=== PATIENT | female | born 1975 | race Hispanic/Latino ===

== ENCOUNTER 2017-01-21 01:31 | Emergency (ER) | payer OTHER ==
[2017-01-21 01:45] VITALS: BMI 35.4
[2017-01-21 01:51] VITALS: TEMP 97.8
[2017-01-21] MEDS ORDERED: Sodium Chloride 0.9% 1,000 ML IV STA (01:55)
[2017-01-21 02:21] LABS: ADD MANUAL DIFF? NO
[2017-01-21 02:24] LABS: BASO # 0.01 K/mm3 (0.0-2.0); BASO % 0.1 % (0.0-3.0); EOS # 0.1 (0.0-0.7); EOS % 0.5 % (1.5-5.0); GRAN # 10.87 (1.4-6.5); HEMATOCRIT 39.6 % (36.0-48.0); LYMPH # 3.2 (1.2-3.4); LYMPH % 21.3 % (22.0-35.0); MEAN CELL VOLUME 90.4 fL (80.0-105.0); MEAN CORPUSCULAR HEMOGLOBIN 31.5 pg (25.0-35.0); MEAN CORPUSCULAR HGB CONC 34.8 g/dl (31.0-37.0); MEAN PLATELET VOLUME 10.5 fl (7.0-11.0); MONO # 0.9 (0.1-0.6); MONO % 6.1 % (1.0-6.0); PLATELET COUNT 260 10^3/uL (120.0-450.0); RED CELL DISTRIBUTION WIDTH 12.8 % (11.5-14.5); WHITE BLOOD COUNT 15.1 10^3/ul (4.5-11.0)
[2017-01-21 02:30] LABS: PH,URINE 5.5 (4.7-8.0); URINE BILIRUBIN NEGATIVE (NEGATIVE); URINE BLOOD SMALL (NEGATIVE); URINE GLUCOSE (UA) NEGATIVE (NEGATIVE); URINE KETONE NEGATIVE (NEGATIVE); URINE LEUKOCYTE ESTERASE NEGATIVE Leu/uL (NEGATIVE); URINE PROTEIN TRACE mg/dL (<30 mg/dL)
[2017-01-21 02:31] LABS: URINE APPEARANCE SLIGHT-CLOUDY (CLEAR); URINE COLOR YELLOW (YELLOW)
[2017-01-21 02:37] LABS: ALB/GLOB RATIO 1.3 (1.1-1.8); ALKALINE PHOSPHATASE 61 U/L (38-133); ALT/SGPT 36 U/L (7-56); AST/SGOT 29 U/L (15-39); BILIRUBIN,TOTAL 0.9 mg/dL (0.2-1.3); BLOOD UREA NITROGEN 14 mg/dL (7-21); CALCIUM 9.5 mg/dL (8.4-10.5); CARBON DIOXIDE 22 mmol/L (21-33); CHLORIDE 106 mmol/L (98-107); GFR AFRICAN-AMERICAN > 60; GLUCOSE,RANDOM 101 mg/dL (70-110); LIPASE 71 U/L (23-300); POTASSIUM 4.1 mmol/L (3.6-5.0); SODIUM 137 mmol/L (132-148); TOTAL PROTEIN 7.8 g/dL (5.8-8.3)
[2017-01-21 02:49] LABS: URINE WBC 0 - 2 /hpf (0-6)
--- NOTE | 2017-01-21 02:55 | ED PDOC ---
Arrival/HPI - General Chief Complaint: Abdominal Pain Time Seen by Provider: 01/21/17 01:47 Historian: Patient - History of Present Illness Narrative History of Present Illness (Text): 01/21/17 02:56 A 41 year old female, whose past medical history includes Crohn's disease, presents to the emergency department complaining of abdominal pain and vomiting for the past week, worsening symptoms tonight. Patient reports symptoms are typical of Crohn's flare. Patient denies any fever, dysuria, diarrhea or any other complaints at this time. GI: Dr. Allen ([place]) PMD: Dr. Martinez Time/Duration: 1 week Symptom Onset: Sudden Symptom Course: Unchanged Activities at Onset: Rest Context: Home Past Medical History - Provider Review Nursing Documentation Reviewed: Yes - Infectious Disease Hx of Infectious Diseases: None - Tetanus Immunization Tetanus Immunization: Unknown - Cardiac Hx Cardiac Disorders: No - Pulmonary Hx Respiratory Disorders: No - Neurological Hx Neurological Disorder: Yes Hx Dizziness: Yes - HEENT Hx HEENT Disorder: No - Renal Hx Renal Disorder: No - Endocrine/Metabolic Hx Endocrine Disorders: No - Hematological/Oncological Hx Blood Disorders: No - Integumentary Hx Dermatological Disorder: No - Musculoskeletal/Rheumatological Hx Musculoskeletal Disorders: No Hx Falls: No - Gastrointestinal Hx Gastrointestinal Disorders: Yes Hx Crohn's Disease: Yes Hx Gall Bladder Disease: Yes - Genitourinary/Gynecological Hx Genitourinary Disorders: No - Psychiatric Hx Psychophysiologic Disorder: Yes Hx Anxiety: Yes Hx Depression: Yes Hx Substance Use: No - Past Surgical History Past Surgical History: No Previous - Anesthesia Hx Anesthesia: Yes Hx Anesthesia Reactions: No Hx Malignant Hyperthermia: No - Suicidal Assessment Feels Threatened In Home Enviroment: No Family/Social History - Physician Review Nursing Documentation Reviewed: Yes Family/Social History: No Known Family HX Smoking Status: Former Smoker Hx Alcohol Use: No Hx Substance Use: No Hx Substance Use Treatment: No Allergies/Home Meds Allergies/Adverse Reactions: Allergies adalimumab [From Humira] Allergy (Verified 06/20/16 10:19) RASH morphine Allergy (Verified 06/20/16 10:19) RASH rifaximin [From Xifaxan] Allergy (Verified 06/20/16 10:19) RASH Sulfa (Sulfonamide Antibiotics) Allergy (Verified 06/20/16 10:19) RASH Home Medications: Home Meds Medication Instructions Recorded Confirmed Dexlansoprazole [Dexilant] 60 mg PO DAILY 10/06/14 01/21/17 Escitalopram [Lexapro] 10 mg PO DAILY 10/06/14 01/21/17 Alprazolam [Xanax] 0.25 mg PO BID 08/23/15 01/21/17 Prednisone [Deltasone] 30 mg PO DAILY 11/13/15 01/21/17 Review of Systems - Physician Review All systems were reviewed & negative as marked: Yes - Review of Systems Constitutional: absent: Fevers Gastrointestinal: Abdominal Pain, Vomiting. absent: Diarrhea Genitourinary Female: absent: Dysuria Physical Exam - Physical Exam Narrative Physical Exam (Text): 01/21/17 02:55 Constitutional: No acute distress. Head: Normocephalic. Atraumatic. Eyes: PERRL. ENT: Moist mucous membranes. Neck: Supple. Cardiovascular: Regular rate. Chest: No tenderness. Respiratory: Clear to auscultation bilaterally. GI: Soft. Nontender. Nondistended. Back: No CVA tenderness. Musculoskeletal: No tenderness or swelling of extremities. Skin: No rash. Neurologic: Alert, no focal deficit. Vital Signs Reviewed: Yes Vital Signs Temp Pulse Resp BP Pulse Ox 01/21/17 03:29 77 18 110/53 L 96 01/21/17 01:50 97.8 F 72 20 156/99 H 98 Temperature: Afebrile Blood Pressure: Hypertensive Pulse: Regular Respiratory Rate: Normal Appearance: Positive for: Well-Appearing, Non-Toxic, Comfortable Pain Distress: None Mental Status: Positive for: Alert and Oriented X 3 Medical Decision Making ED Course and Treatment: 01/21/17 02:48 Impression: A 41 year old female with vomiting and abdominal pain. Differential Diagnosis included but are not limited to: obstruction vs. megacolon Plan: -- Abdomen Xray -- labs -- Urinalysis -- pepcid, IV fluids, Toradol, Zofran -- Reassess and disposition Prior Visits: Notes and results from previous visits were reviewed. Patient last reported to the emergency department on 06/20/16 for evaluation of nausea and abdominal pain. Patient was discharged and advised Percocet medication for pain and Zofran for nausea. Patient also advised [employer] and PMD follow up. Progress Notes: Patient states typically takes Dilaudid for pain when comes to emergency department and must be given with Benadryl, for itchiness. Patient was informed , don't use Dilaudid in my practice. Patient notes allergy to morphine. - Lab Interpretations Lab Results: 01/21/17 02:11 01/21/17 02:11 Lab Results 01/21/17 02:11: Sodium 137, Potassium 4.1, Chloride 106, Carbon Dioxide 22, Anion Gap 13, BUN 14, Creatinine 0.6, Est GFR ( Amer) > 60, Est GFR (Non- Af Amer) > 60, Random Glucose 101, Calcium 9.5, Total Bilirubin 0.9, AST 29, ALT 36, Alkaline Phosphatase 61, Total Protein 7.8, Albumin 4.4, Globulin 3.4, Albumin/Globulin Ratio 1.3, Lipase 71 01/21/17 02:11: Urine Color Yellow, Urine Appearance Slight-cloudy, Urine pH 5.5 , Ur Specific [place] >= 1.030, Urine Protein Trace H, Urine Glucose (UA) Negative, Urine Ketones Negative, Urine Blood Small H, Urine Nitrate Negative, Urine Bilirubin Negative, Urine Urobilinogen 1.0 H, Ur Leukocyte Esterase Negative, Urine RBC 1 - 3, Urine WBC 0 - 2, Ur Epithelial Cells 10 - 12, Urine HCG, Qual Negative 01/21/17 02:11: WBC 15.1 H, RBC 4.38, Hgb 13.8, Hct 39.6, MCV 90.4, MCH 31.5, MCHC 34.8, RDW 12.8, Plt Count 260, MPV 10.5, Gran % 72.0 H, Lymph % (Auto) 21.3 L, [place] % (Auto) 6.1 H, Eos % (Auto) 0.5 L, Baso % (Auto) 0.1, Gran # 10.87 H, Lymph # 3.2, [place] # 0.9 H, Eos # 0.1, Baso # 0.01 I have reviewed the lab results: Yes - RAD Interpretation Radiology Orders: 01/21/17 01:56 ABD 2 VIEWS (FLAT/UP OR DECUB) [RAD] Stat - Medication Orders Current Medication Orders: Discontinued Medications Famotidine (Pepcid) 20 mg IVP STAT STA Stop: 01/21/17 01:57 Last Admin: 01/21/17 02:10 Dose: 20 mg Sodium Chloride (Sodium Chloride 0.9%) 1,000 mls @ 999 mls/hr IV .Q1H1M STA Stop: 01/21/17 02:55 Last Admin: 01/21/17 02:09 Dose: 999 mls/hr Ketorolac Tromethamine (Toradol) 30 mg IVP STAT STA Stop: 01/21/17 01:56 Last Admin: 01/21/17 02:10 Dose: 30 mg Re-Assess: MELANY Pain Assessment Document 01/21/17 03:10 GMD (Rec: 01/21/17 03:25 GMD [id number]) Pain Reassessment Is this a pain reassessment? Yes Sleep Is patient sleeping during reassessment? No Presence of Pain Presence of Pain Yes Pain Scale Used Pain Scale Used Numeric Location Pain Location Body Site Abdomen Description Effectiveness of Techniques minimal effect Ondansetron HCl (Zofran Inj) 8 mg IVP STAT STA Stop: 01/21/17 01:56 Last Admin: 01/21/17 02:10 Dose: 8 mg Oxycodone/Acetaminophen (Percocet 5/325 Mg Tab) 1 tab PO STAT STA Stop: 01/21/17 03:15 Last Admin: 01/21/17 03:24 Dose: 1 tab - Scribe Statement The provider has reviewed the documentation as recorded by the Dave To Provider Scribe Attestation: All medical record entries made by the Scribe were at my direction and personally dictated by me. I have reviewed the chart and agree that the record accurately reflects my personal performance of the history, physical exam, medical decision making, and the department course for this patient. I have also personally directed, reviewed, and agree with the discharge instructions and disposition. Disposition/Present on Arrival - Present on Arrival Any Indicators Present on Arrival: No History of DVT/PE: No History of Uncontrolled Diabetes: No Urinary Catheter: No History of Decub. Ulcer: No History Surgical Site Infection Following: None - Disposition Have Diagnosis and Disposition been Completed?: Yes Diagnosis: Exacerbation of Crohn's disease Disposition: HOME/ ROUTINE Disposition Time: 04:30 Patient Plan: Discharge Condition: STABLE Discharge Instructions (ExitCare): Crohn Disease (ED) Additional Instructions: Narcotic medication can potentially cause addiction. Please use the minimum amount you need for your pain. Prescriptions: oxyCODONE/Acetaminophen [Percocet 5/325 mg Tab] 1 tab PO Q6 #10 tab Polyethylene Glycol 3350 [Miralax] 17 gm PO DAILY #238 gm
[2017-01-21] MEDS ORDERED: Oxycodone/Acetaminophen 5/325 mg Tab PO STA (03:14)
[2017-01-21 03:30] VITALS: PULSE 77; RESP 18
[2017-01-21 05:34] VITALS: BP 114/64; O2SAT 97
--- NOTE | 2017-01-22 08:23 | RAD ---
HISTORY: abdominal pain, vomiting, h/o Crohn's COMPARISON: No prior. FINDINGS: BOWEL: Normal. No obstruction. No free air. BONES: Normal. OTHER FINDINGS: None. IMPRESSION: No active disease.
== END 2017-01-21 05:34 | disposition home or self-care (01) ==
LOC: ED 01:31
DX: K50.90 Crohn's disease, unspecified, without complications (principal)
CPT/HCPCS: 74020; 80053; 81001; 83690; 84703; 85025; 96361; 96374; 96375; 99285; J1885; J2405; J7040

== ENCOUNTER 2017-03-15 07:58 | Inpatient (IN) | payer OTHER ==
[2017-03-15] MEDS ORDERED: Sodium Chloride 0.9% 1,000 ML IV STA (09:09)
[2017-03-15 09:49] LABS: BASO # 0.01 K/mm3 (0.0-2.0); BASO % 0.1 % (0.0-3.0); EOS % 0.1 % (1.5-5.0); GRAN % 83.4 % (50.0-68.0); HEMOGLOBIN 14.9 gm/dL (12.0-16.0); LYMPH # 1.6 (1.2-3.4); LYMPH % 10.2 % (22.0-35.0); MEAN CORPUSCULAR HGB CONC 35.1 g/dl (31.0-37.0); MEAN PLATELET VOLUME 10.4 fl (7.0-11.0); MONO % 6.2 % (1.0-6.0); PLATELET COUNT 327 10^3/uL (120.0-450.0); RBC 4.66 10^6/uL (3.5-6.1); WHITE BLOOD COUNT 15.9 10^3/ul (4.5-11.0)
[2017-03-15 09:57] LABS: PARTIAL THROMBOPLASTIN TIME 29.2 Seconds (23.7-30.8); PROTHROMBIN TIME 10.8 Seconds (9.9-11.8)
--- NOTE | 2017-03-15 10:02 | ED PDOC ---
Arrival/HPI - General Time Seen by Provider: 03/15/17 09:09 Historian: Patient - History of Present Illness Narrative History of Present Illness (Text): 03/15/17 08:25 Idalia Banks is a 42 year old female, whose past medical history includes Crohn's disease, presents to the emergency department complaining of upper and right sided abdominal pain that started last night. Patient reports she has felt nauseous and vomited twice. Patient denies any fever, dysuria, diarrhea, or any other complaints at this time. Time/Duration: Other (since last night at 21:30) Symptom Onset: Gradual Symptom Course: Unchanged Modifying Factors (Text): None Context: Home Associated Symptoms (Text): Vomiting and nausea Past Medical History - Provider Review Nursing Documentation Reviewed: Yes - Infectious Disease Hx of Infectious Diseases: None - Tetanus Immunization Tetanus Immunization: Unknown - Cardiac Hx Cardiac Disorders: No - Pulmonary Hx Respiratory Disorders: No - Neurological Hx Neurological Disorder: Yes Hx Dizziness: Yes - HEENT Hx HEENT Disorder: No - Renal Hx Renal Disorder: No - Endocrine/Metabolic Hx Endocrine Disorders: No - Hematological/Oncological Hx Blood Disorders: No - Integumentary Hx Dermatological Disorder: No - Musculoskeletal/Rheumatological Hx Musculoskeletal Disorders: No Hx Falls: No - Gastrointestinal Hx Gastrointestinal Disorders: Yes Hx Crohn's Disease: Yes Hx Gall Bladder Disease: Yes - Genitourinary/Gynecological Hx Genitourinary Disorders: No - Psychiatric Hx Psychophysiologic Disorder: Yes Hx Anxiety: Yes Hx Depression: Yes Hx Substance Use: No - Past Surgical History Past Surgical History: No Previous - Anesthesia Hx Anesthesia: Yes Hx Anesthesia Reactions: No Hx Malignant Hyperthermia: No - Suicidal Assessment Feels Threatened In Home Enviroment: No Family/Social History - Physician Review Nursing Documentation Reviewed: Yes Family/Social History: Unknown Family HX Smoking Status: Former Smoker Hx Alcohol Use: No Hx Substance Use: No Hx Substance Use Treatment: No Allergies/Home Meds Allergies/Adverse Reactions: Allergies adalimumab [From Humira] Allergy (Verified 06/20/16 10:19) RASH morphine Allergy (Verified 06/20/16 10:19) RASH rifaximin [From Xifaxan] Allergy (Verified 06/20/16 10:19) RASH Sulfa (Sulfonamide Antibiotics) Allergy (Verified 06/20/16 10:19) RASH Home Medications: Home Meds Medication Instructions Recorded Confirmed Dexlansoprazole [Dexilant] 60 mg PO DAILY 10/06/14 01/21/17 Escitalopram [Lexapro] 10 mg PO DAILY 10/06/14 01/21/17 Alprazolam [Xanax] 0.25 mg PO BID 08/23/15 01/21/17 Prednisone [Deltasone] 30 mg PO DAILY 11/13/15 01/21/17 Review of Systems - Physician Review All systems were reviewed & negative as marked: Yes - Review of Systems Constitutional: absent: Fevers Respiratory: absent: SOB Gastrointestinal: Abdominal Pain, Nausea, Vomiting Genitourinary Female: absent: Dysuria Physical Exam Temperature: Afebrile Blood Pressure: Normal Pulse: Regular Respiratory Rate: Normal Appearance: Positive for: Well-Appearing, Non-Toxic, Comfortable Pain Distress: None Mental Status: Positive for: Alert and Oriented X 3 - Systems Exam Head: Present: Atraumatic, Normocephalic Pupils: Present: PERRL Extroacular Muscles: Present: EOMI Conjunctiva: Present: Normal Mouth: Present: Moist Mucous Membranes Neck: Present: Normal Range of Motion Respiratory/Chest: Present: Clear to Auscultation, Good Air Exchange. No: Respiratory Distress, Accessory Muscle Use Cardiovascular: Present: Regular Rate and Rhythm, Normal S1, S2. No: Murmurs Abdomen: Present: Tenderness (RUQ chrons disease exacerbation r/o appendicitis ) , Normal Bowel Sounds. No: Distention, Peritoneal Signs Back: Present: Normal Inspection Upper Extremity: Present: Normal Inspection. No: Cyanosis, Edema Lower Extremity: Present: Normal Inspection. No: Edema Neurological: Present: GCS=15, CN II-XII Intact, Speech Normal Skin: Present: Warm, Dry, Normal Color. No: Rashes Psychiatric: Present: Alert, Oriented x 3, Normal Insight, Normal Concentration Medical Decision Making ED Course and Treatment: 03/15/17 08:25 Impression: 42 year old female with RUQ abdominal pain. Differential Diagnosis included but are not limited to: crohn's exacerbation vs obstruction Plan: -- CT abdomen and pelvis with PO and IV contrast -- Labs -- Sodium Chloride, Toradol, and Zofran -- Reassess and disposition - Lab Interpretations Lab Results: 03/15/17 08:50 03/15/17 08:50 Lab Results 03/15/17 08:50: Sodium 138, Potassium 4.1, Chloride 102, Carbon Dioxide 23, Anion Gap 17, BUN 11, Creatinine 0.6, Est GFR ( Amer) > 60, Est GFR (Non- Af Amer) > 60, Random Glucose 109, Calcium 9.7, Total Bilirubin 0.9, AST 38, ALT 40, Alkaline Phosphatase 68, Total Protein 8.4 H, Albumin 4.8, Globulin 3.6 , Albumin/Globulin Ratio 1.3, Lipase 42 03/15/17 08:50: PT 10.8, INR 1.00, APTT 29.2 03/15/17 08:50: WBC 15.9 H, RBC 4.66, Hgb 14.9, Hct 42.4, MCV 91.0, MCH 32.0, MCHC 35.1, RDW 13.0, Plt Count 327, MPV 10.4, Gran % 83.4 H, Lymph % (Auto) 10.2 L, [place] % (Auto) 6.2 H, Eos % (Auto) 0.1 L, Baso % (Auto) 0.1, Gran # 13.30 H, Lymph # 1.6, [place] # 1.0 H, Eos # 0.0, Baso # 0.01 I have reviewed the lab results: Yes - RAD Interpretation Radiology Orders: 03/15/17 09:09 ABD PELVIS PO & IV CONTRAST [CT] Stat - Medication Orders Current Medication Orders: Heparin Sodium (Porcine) (Heparin) 5,000 units SC Q12 [facility] Sodium Chloride (Sodium Chloride 0.9%) 1,000 mls @ 125 mls/hr IV .Q8H [facility] Last Admin: 03/15/17 15:12 Dose: 125 mls/hr Metronidazole (Flagyl) 500 mg in 100 mls @ 100 mls/hr IVPB Q8 REESE PRN Reason: Protocol Ceftriaxone Sodium (Rocephin 1 Gram Ivpb) 1 gm in 100 mls @ 100 mls/hr IVPB DAILY [facility] PRN Reason: Protocol Last Admin: 03/15/17 15:34 Dose: 100 mls/hr Ketorolac Tromethamine (Toradol) 30 mg IVP Q6 PRN PRN Reason: Pain, severe (8-10) Stop: 03/17/17 23:59 Ondansetron HCl (Zofran Inj) 4 mg IVP Q6H PRN PRN Reason: Nausea/Vomiting Pantoprazole Sodium (Protonix Inj) 40 mg IVP DAILY REESE Discontinued Medications Sodium Chloride (Sodium Chloride 0.9%) 1,000 mls @ 1,000 mls/hr IV .Q1H STA Stop: 03/15/17 10:08 Last Admin: 03/15/17 09:22 Dose: 1,000 mls/hr Iohexol (Omnipaque 350 100 Ml) Confirm Administered Dose 350 mg .ROUTE .STK-MED ONE Stop: 03/15/17 10:10 Ketorolac Tromethamine (Toradol) 30 mg IVP STAT STA Stop: 03/15/17 09:10 Last Admin: 03/15/17 09:13 Dose: 30 mg Ketorolac Tromethamine (Toradol) 30 mg IVP STAT STA Stop: 03/15/17 15:05 Last Admin: 03/15/17 15:33 Dose: 30 mg Ondansetron HCl (Zofran Inj) 4 mg IVP STAT STA Stop: 03/15/17 09:10 Last Admin: 03/15/17 09:05 Dose: 4 mg ED OBSERVATION Discharge: Yes Date of observation admission: 03/15/17 Time of observation admission: 08:25 - Observation admission statement Patient is being placed in observation because:: Right upper quadrant pain. Chron's disease exacerbation. - Goals of Observation Goals of observation are:: To relief and improve pain symptoms. - Progress Note Progress Note: 03/15/17 08:25 Patient is currently being observe and given the following treatments: -- EKG -- CT abdomen and pelvis with PO and IV contrast -- Labs -- Toradol, Zofran, and Sodium Chloride 03/15/17 10:25 EKG: Ordered, reviewed, and independently interpreted the EKG. Rate : 76 BPM Rhythm : NSR Interpretation : No ST-segment elevations or depressions, no T-wave inversions, normal intervals. Comparison : No previous EKG for comparison. 03/15/2017 12:25 CT Abdomen and Pelvis with oral and IV contrast: Creator : Love Samaniego MD COMPARISON: CT of the abdomen and pelvis with contrast performed 06/20/16 FINDINGS: LOWER THORAX: No visible consolidation, pleural effusion, or pneumothorax. LIVER: Hypoattenuation of the liver compatible with hepatic steatosis. GALLBLADDER AND BILE DUCTS:Cholelithiasis. PANCREAS: Unremarkable. SPLEEN: Unremarkable. ADRENALS:Unremarkable. KIDNEYS AND URETERS:The kidneys enhance symmetrically. No hydronephrosis or obstructing renal calculus. BLADDER:The urinary bladder appears unremarkable. REPRODUCTIVE:Uterus is present. APPENDIX: The presumed appendix measures approximately 9 mm in maximum diameter without associated inflammatory changes appreciated. BOWEL:The stomach is nondistended. Dilated loops of small bowel most prominent centrally worrisome for obstruction. Apparent stricture or abnormality about the terminal ileum. PERITONEUM: Small pelvic free fluid. No definite free air. LYMPH NODES: No bulky lymphadenopathy identified. VASCULATURE: No aortic aneurysm. BONES: No acute osseous abnormality is detected. OTHER FINDINGS:None. IMPRESSION: Dilated loops of small bowel most prominent centrally worrisome for obstruction. Apparent stricture or abnormality about the terminal ileum. Correlate clinically as this may be related to patient's history of Crohn's disease. The presumed appendix appears mildly dilated measuring up to approximately 9 mm in maximum diameter without associated inflammatory changes appreciated. Correlate clinically. Small pelvic free fluid. Cholelithiasis. Hepatic steatosis. 03/15/17 12:25 Patient is resting comfortably with no acute stress. The CT scans were reviewed. Case was discussed with Dr. Murphy, Surgery who will place on her service. Requested surgical residents being. Discussed cased with Aman Miranda who will place on her service. Patient's pain was controlled. - Scribe Statement The provider has reviewed the documentation as recorded by the Scribe 03/15/2017 Alexandria Edwards Provider Scribe Attestation: All medical record entries made by the Scribe were at my direction and personally dictated by me. I have reviewed the chart and agree that the record accurately reflects my personal performance of the history, physical exam, medical decision making, and the department course for this patient. I have also personally directed, reviewed, and agree with the discharge instructions and disposition. Disposition/Present on Arrival - Present on Arrival Any Indicators Present on Arrival: No History of DVT/PE: No History of Uncontrolled Diabetes: No Urinary Catheter: No History Surgical Site Infection Following: None - Disposition Have Diagnosis and Disposition been Completed?: Yes Diagnosis: Bowel obstruction Disposition: HOSPITALIZED Disposition Time: 13:44 Patient Plan: Observation Condition: FAIR
[2017-03-15 10:06] LABS: ALB/GLOB RATIO 1.3 (1.1-1.8); ALBUMIN 4.8 g/dL (3.0-4.8); ALT/SGPT 40 U/L (7-56); AST/SGOT 38 U/L (15-39); BLOOD UREA NITROGEN 11 mg/dL (7-21); CALCIUM 9.7 mg/dL (8.4-10.5); GFR AFRICAN-AMERICAN > 60; GFR NON-AFRICAN AMERICAN > 60; LIPASE 42 U/L (23-300)
[2017-03-15] MEDS ORDERED: Iohexol 350 MG/100 ML VIAL ONE (10:09)
--- NOTE | 2017-03-15 12:20 | CT ---
PROCEDURE: CT Abdomen and Pelvis with oral and IV contrast. HISTORY: abd pain h/o crohn's r/o appy r/o abscess COMPARISON: CT of the abdomen and pelvis with contrast performed 06/20/16 TECHNIQUE: Contiguous axial images of the abdomen and pelvis. Oral and IV contrast was administered. Coronal and Sagittal reformats generated and reviewed. Contrast dose: 100 mL Omnipaque 350 Radiation dose: Total exam DLP = 909.41 mGy-cm. This CT exam was performed using one or more of the following dose reduction techniques: Automated exposure control, adjustment of the mA and/or kV according to patient size, and/or use of iterative reconstruction technique. FINDINGS: LOWER THORAX: No visible consolidation, pleural effusion, or pneumothorax. LIVER: Hypoattenuation of the liver compatible with hepatic steatosis. GALLBLADDER AND BILE DUCTS: Cholelithiasis. PANCREAS: Unremarkable. SPLEEN: Unremarkable. ADRENALS: Unremarkable. KIDNEYS AND URETERS: The kidneys enhance symmetrically. No hydronephrosis or obstructing renal calculus. BLADDER: The urinary bladder appears unremarkable. REPRODUCTIVE: Uterus is present. APPENDIX: The presumed appendix measures approximately 9 mm in maximum diameter without associated inflammatory changes appreciated. BOWEL: The stomach is nondistended. Dilated loops of small bowel most prominent centrally worrisome for obstruction. Apparent stricture or abnormality about the terminal ileum. PERITONEUM: Small pelvic free fluid. No definite free air. LYMPH NODES: No bulky lymphadenopathy identified. VASCULATURE: No aortic aneurysm. BONES: No acute osseous abnormality is detected. OTHER FINDINGS: None. IMPRESSION: Dilated loops of small bowel most prominent centrally worrisome for obstruction. Apparent stricture or abnormality about the terminal ileum. Correlate clinically as this may be related to patient's history of Crohn's disease. The presumed appendix appears mildly dilated measuring up to approximately 9 mm in maximum diameter without associated inflammatory changes appreciated. Correlate clinically. Small pelvic free fluid. Cholelithiasis. Hepatic steatosis.
[2017-03-15] MEDS: Sodium Chloride 0.9% 1,000 ML IV SCH (15:12)
--- NOTE | 2017-03-15 15:13 | RAD ---
PROCEDURE: Portable chest HISTORY: ngt COMPARISON: 11/13/2015 TECHNIQUE: FINDINGS: The nasogastric tube is in satisfactory position in the region of the gastric antrum IMPRESSION: As above
[2017-03-15] MEDS: cefTRIAXone 1 gm 1 GM/100 ML BAG IVPB SCH (15:34)
--- NOTE | 2017-03-15 16:11 | CP.PCM.CON ---
History of Present Illness - History of Present Illness History of Present Illness: General Surgery Consult Note Resident: Dayna Attending: Jeffrey HPI: We are being consulted for a SBO. Patient is a 42 yo WF with Crohn's Disease who presented to the ED with a chief complaint of abdominal pain for 1 day. Today at home she was vomiting before coming to ED. She had a loose BM today without blood. The onset was sudden. She has had two prior episodes of SBO that resolved with conservative management, one at [facility] and the other at [facility]. CT showed dilated loops of small bowel and a new stricture in the terminal ileum. NGT was inserted in ED. Patient was admitted to the hospital. Review of Systems - Constitutional Constitutional: As Per HPI - EENT Eyes: As Per HPI Ears: As Per HPI - Cardiovascular Cardiovascular: As Per HPI - Respiratory Respiratory: As Per HPI - Gastrointestinal Gastrointestinal: Abdominal Pain, Bloating, Change in Bowel Habits, Cramping, Loose Stools, Nausea, Vomiting. absent: Hematemesis Past Patient History - Infectious Disease Hx of Infectious Diseases: None - Tetanus Immunizations Tetanus Immunization: Unknown - Past Social History Smoking Status: Former Smoker - CARDIAC Hx Cardiac Disorders: No - PULMONARY Hx Respiratory Disorders: No - NEUROLOGICAL Hx Neurological Disorder: Yes Hx Dizziness: Yes - HEENT Hx HEENT Problems: No - RENAL Hx Chronic Kidney Disease: No - ENDOCRINE/METABOLIC Hx Endocrine Disorders: No - HEMATOLOGICAL/ONCOLOGICAL Hx Blood Disorders: No - INTEGUMENTARY Hx Dermatological Problems: No - MUSCULOSKELETAL/RHEUMATOLOGICAL Hx Musculoskeletal Disorders: No Hx Falls: No - GASTROINTESTINAL Hx Gastrointestinal Disorders: Yes Hx Crohn's Disease: Yes Hx Gall Bladder Disease: Yes - GENITOURINARY/GYNECOLOGICAL Hx Genitourinary Disorders: No - PSYCHIATRIC Hx Psychophysiologic Disorder: Yes Hx Anxiety: Yes Hx Depression: Yes Hx Substance Use: No - SURGICAL HISTORY Hx Surgeries: No - ANESTHESIA Hx Anesthesia: Yes Hx Anesthesia Reactions: No Hx Malignant Hyperthermia: No Meds Allergies/Adverse Reactions: Allergies Allergy/AdvReac Type Severity Reaction Status Date / Time adalimumab [From Humira] Allergy RASH Verified 06/20/16 10:19 morphine Allergy RASH Verified 06/20/16 10:19 rifaximin [From Xifaxan] Allergy RASH Verified 06/20/16 10:19 Sulfa (Sulfonamide Allergy RASH Verified 06/20/16 10:19 Antibiotics) - Medications Medications: Current Medications Heparin Sodium (Porcine) (Heparin) 5,000 units SC Q12 [facility] Sodium Chloride (Sodium Chloride 0.9%) 1,000 mls @ 125 mls/hr IV .Q8H [facility] Last Admin: 03/15/17 15:12 Dose: 125 mls/hr Metronidazole (Flagyl) 500 mg in 100 mls @ 100 mls/hr IVPB Q8 [facility] PRN Reason: Protocol Ceftriaxone Sodium (Rocephin 1 Gram Ivpb) 1 gm in 100 mls @ 100 mls/hr IVPB DAILY [facility] PRN Reason: Protocol Last Admin: 03/15/17 15:34 Dose: 100 mls/hr Ketorolac Tromethamine (Toradol) 30 mg IVP Q6 PRN PRN Reason: Pain, severe (8-10) Stop: 03/17/17 23:59 Ondansetron HCl (Zofran Inj) 4 mg IVP Q6H PRN PRN Reason: Nausea/Vomiting Pantoprazole Sodium (Protonix Inj) 40 mg IVP DAILY [facility] Physical Exam - Constitutional Appears: No Acute Distress - Head Exam Head Exam: NORMAL INSPECTION - Eye Exam Eye Exam: EOMI - ENT Exam ENT Exam: Mucous Membranes Moist - Respiratory Exam Respiratory Exam: Clear to Auscultation Bilateral - Cardiovascular Exam Cardiovascular Exam: REGULAR RHYTHM - GI/Abdominal Exam GI & Abdominal Exam: Soft. absent: Distended, Tenderness Results - Labs Result Diagrams: 03/15/17 08:50 03/15/17 08:50 Assessment & Plan - Assessment and Plan (Free Text) Assessment: 42 yo WF with SBO * NGT * NPO * Toradol for pain * Serial abdominal exam * IVF NS @ 125 * DVT PPX: SCD * Will discuss with Dr. Jeffrey Mcintosh DO PGY-I - Date & Time Date: 03/15/17 Time: 16:20
[2017-03-15] MEDS: metroNIDAZOLE IV 500 mg/100 ml 500 MG/100 ML BAG IVPB SCH ×2 (16:40→22:46)
--- NOTE | 2017-03-15 16:46 | CP.PCM.HP ---
History of Present Illness - History of Present Illness History of Present Illness: HPI: 42yo F with PMH of Crohns dx presented to [facility] [place] with RLQ abd pain and nausea that started suddenly around 9pm last night. Pt describes pain as crampy and clenching, and says that it comes in waves. Pt reports that she ate dinner (chicken and rice) a few hours before the pain began. Pt usually has percocets at home for pain but did not have any so she took a xanax which slightly helped. This morning, the pt had 2 episodes of emesis consisting of food remnants. Noted some red in the emesis but did not attribute it to blood. Pts last BM was today in the ER, had a softer consistency than normal for her but was normal color and not watery. Denies having an appetite today. Pt has had similar episodes of abd pain previously, was admitted August and October [address] evidence of SBO without stricture. Both admissions involved bowel rest and NG tube decompression with resolution. Pt relays that the current pain is less than previous occurrences. Currently, pt denies fevers, chills, DUMONT, SOB , chest pain, dysuria, urinary frequency, constipation, diarrhea, melena, hematochezia. PMHx: Crohns diagnosed in 2004 SHx: denies FHx: mother with possible h/o colitis Social: previous smoker, quit 4yrs ago with 25pk year history. Social drinker, denies illicit drugs Allergies: adalimumab, morphine, rifaximin, sulfa Home Medications: prednisone, xanax, remicade q8wks Present on Admission - Present on Admission Any Indicators Present on Admission: No Review of Systems - Review of Systems All systems: reviewed and no additional remarkable complaints except - Constitutional Constitutional: As Per HPI - Cardiovascular Cardiovascular: As Per HPI - Respiratory Respiratory: As Per HPI - Gastrointestinal Gastrointestinal: As Per HPI - Genitourinary Genitourinary: As Per HPI Past Patient History - Infectious Disease Hx of Infectious Diseases: None - Tetanus Immunizations Tetanus Immunization: Unknown - Past Social History Smoking Status: Former Smoker - CARDIAC Hx Cardiac Disorders: No - PULMONARY Hx Respiratory Disorders: No - NEUROLOGICAL Hx Neurological Disorder: Yes Hx Dizziness: Yes - HEENT Hx HEENT Problems: No - RENAL Hx Chronic Kidney Disease: No - ENDOCRINE/METABOLIC Hx Endocrine Disorders: No - HEMATOLOGICAL/ONCOLOGICAL Hx Blood Disorders: No - INTEGUMENTARY Hx Dermatological Problems: No - MUSCULOSKELETAL/RHEUMATOLOGICAL Hx Musculoskeletal Disorders: No Hx Falls: No - GASTROINTESTINAL Hx Gastrointestinal Disorders: Yes Hx Crohn's Disease: Yes Hx Gall Bladder Disease: Yes - GENITOURINARY/GYNECOLOGICAL Hx Genitourinary Disorders: No - PSYCHIATRIC Hx Psychophysiologic Disorder: Yes Hx Anxiety: Yes Hx Depression: Yes Hx Substance Use: No - SURGICAL HISTORY Hx Surgeries: No - ANESTHESIA Hx Anesthesia: Yes Hx Anesthesia Reactions: No Hx Malignant Hyperthermia: No Meds Allergies/Adverse Reactions: Allergies Allergy/AdvReac Type Severity Reaction Status Date / Time adalimumab [From Humira] Allergy RASH Verified 06/20/16 10:19 morphine Allergy RASH Verified 06/20/16 10:19 rifaximin [From Xifaxan] Allergy RASH Verified 06/20/16 10:19 Sulfa (Sulfonamide Allergy RASH Verified 06/20/16 10:19 Antibiotics) Physical Exam - Constitutional Appears: Non-toxic - Head Exam Head Exam: ATRAUMATIC, NORMOCEPHALIC - Eye Exam Eye Exam: EOMI, Normal appearance - ENT Exam ENT Exam: Mucous Membranes Moist - Neck Exam Neck exam: Negative for: Lymphadenopathy, Thyromegaly - Respiratory Exam Respiratory Exam: Clear to Auscultation Bilateral. absent: Rales, Rhonchi, Wheezes, Stridor - Cardiovascular Exam Cardiovascular Exam: RRR, +S1, +S2 - GI/Abdominal Exam GI & Abdominal Exam: Normal Bowel Sounds, Soft, Tenderness. absent: Organomegaly - Extremities Exam Extremities exam: Negative for: pedal edema - Neurological Exam Neurological exam: Alert, Oriented x3 - Psychiatric Exam Psychiatric exam: Normal Affect, Normal Mood Results - Labs Result Diagrams: 03/15/17 08:50 03/15/17 08:50 Assessment & Plan - Assessment and Plan (Free Text) Assessment: 42yo F with PMH of Crohns disease admitted [place] [facility] for crampy RLQ abd pain and n/v Plan: 1.Abd pain -Likely 2/2 SBO with new terminal ileum stricture per CT scan vs appendicitis -Toradol for pain control for up to 48hrs, dilaudid for severe pain overnight -Zofran for nausea -Surg recs appreciated - admitted to med/surg NPO with IVF, NG tube, no surgery planned currently -GI consult 2.Leukocytosis -WBC 15.9 -Rocephin/flagyl for possible appendicitis -9mm dilated appendix on CT scan -UA, blood cx, -Urine cx pending -Procal, CRP pending GI ppx - PTX DVT ppx - heparin sc, SCDs Dispo: admit to med/surg, NPO with IVF and NG tube decompression. No surgery planned. GI on consult. Pain control overnigh - Date & Time Date: 03/15/17 Time: 18:35
[2017-03-15 16:55] VITALS: RESP 20
--- NOTE | 2017-03-15 17:28 | CARD ---
APPROVED REPORT EKG Measurement Heart [id number] <Conclusion> Sinus rhythm with short HI Low voltage QRS Borderline ECG
[2017-03-15 23:28] VITALS: BMI 34.3
[2017-03-15] MEDS ORDERED: Pneumococcal 23-Valent Vaccine IM ONE (23:28)
[2017-03-16] MEDS: metroNIDAZOLE IV 500 mg/100 ml 500 MG/100 ML BAG IVPB SCH ×3 (06:44→21:28)
[2017-03-16 07:21] LABS: ALB/GLOB RATIO 1.2 (1.1-1.8); ALBUMIN 3.4 g/dL (3.0-4.8); ALT/SGPT 25 U/L (7-56); AST/SGOT 21 U/L (15-39); BLOOD UREA NITROGEN 11 mg/dL (7-21); CALCIUM 7.8 mg/dL (8.4-10.5); GFR AFRICAN-AMERICAN > 60; GFR NON-AFRICAN AMERICAN > 60
[2017-03-16 07:38] LABS: HEMOGLOBIN 12.9 gm/dL (12.0-16.0); MEAN CELL VOLUME 92.8 fL (80.0-105.0); MEAN CORPUSCULAR HEMOGLOBIN 32.1 pg (25.0-35.0); MEAN CORPUSCULAR HGB CONC 34.6 g/dl (31.0-37.0); MEAN PLATELET VOLUME 10.3 fl (7.0-11.0); RBC 4.02 10^6/uL (3.5-6.1); RED CELL DISTRIBUTION WIDTH 13.1 % (11.5-14.5); WHITE BLOOD COUNT 6.7 10^3/ul (4.5-11.0)
--- NOTE | 2017-03-16 08:07 | CP.PCM.CON ---
<Dillon Trejo - Last Filed: 03/16/17 08:52> History of Present Illness - History of Present Illness History of Present Illness: PGY4 GI Initial Consult Jocelyn Friedman is a 42F w/ hx of Crohn's diagnosed in 2004 who presents to the Er with complaints of abd pain, nausea, and vomiting. Pt states that the onset was 2-3 days prior. she describes the pain as initially being tolerable but worsened to 10 out of 10 pain. Location RLQ and nonradiating. Duration constant. Quality: sharp. Pt states that she also had concurrent nausea and vomiting with loose BM, She denies any fever, chills or diaphoresis. She has been on methotrexate and remicade infusions. Her last infusion was in January. She denies any blood in her BM, + flatus. Last BM last night. Denies nay melena, hematemsis. Her Abd CT in the ER revealed a stricture around the ileum. She was admitted as a SBO and a NG was placed. There was > 600cc output since placement. PMHx: Crohns diagnosed in 2004 SHx: denies FHx: mother with possible h/o colitis Social: previous smoker, quit 4yrs ago with 25pk year history. Social drinker, denies illicit drugs Allergies: adalimumab, morphine, rifaximin, sulfa Home Medications: prednisone, xanax, remicade q8wks Endoscopy hx: within the last 5 years, as per pt had both EGD and colonoscopy, possible polyps Past Patient History - Infectious Disease Hx of Infectious Diseases: None - Tetanus Immunizations Tetanus Immunization: Unknown - Past Social History Smoking Status: Current Some Days Smoker - CARDIAC Hx Cardiac Disorders: No - PULMONARY Hx Respiratory Disorders: No - NEUROLOGICAL Hx Neurological Disorder: Yes Hx Dizziness: Yes - HEENT Hx HEENT Problems: No - RENAL Hx Chronic Kidney Disease: No - ENDOCRINE/METABOLIC Hx Endocrine Disorders: No - HEMATOLOGICAL/ONCOLOGICAL Hx Blood Disorders: No - INTEGUMENTARY Hx Dermatological Problems: No - MUSCULOSKELETAL/RHEUMATOLOGICAL Hx Musculoskeletal Disorders: No Hx Falls: No - GASTROINTESTINAL Hx Gastrointestinal Disorders: Yes Hx Crohn's Disease: Yes Hx Gall Bladder Disease: Yes ([place]) Hx Gastroesophageal Reflux: Yes - GENITOURINARY/GYNECOLOGICAL Hx Genitourinary Disorders: No - PSYCHIATRIC Hx Psychophysiologic Disorder: Yes Hx Anxiety: Yes Hx Depression: Yes Hx Substance Use: No - SURGICAL HISTORY Hx Surgeries: No - ANESTHESIA Hx Anesthesia: Yes Hx Anesthesia Reactions: No Hx Malignant Hyperthermia: No Meds Allergies/Adverse Reactions: Allergies Allergy/AdvReac Type Severity Reaction Status Date / Time adalimumab [From Humira] Allergy RASH Verified 06/20/16 10:19 morphine Allergy RASH Verified 06/20/16 10:19 rifaximin [From Xifaxan] Allergy RASH Verified 06/20/16 10:19 Sulfa (Sulfonamide Allergy RASH Verified 06/20/16 10:19 Antibiotics) - Medications Medications: Current Medications Heparin Sodium (Porcine) (Heparin) 5,000 units SC Q12 [facility] Last Admin: 03/15/17 22:46 Dose: 5,000 units Sodium Chloride (Sodium Chloride 0.9%) 1,000 mls @ 125 mls/hr IV .Q8H [facility] Last Admin: 03/15/17 15:12 Dose: 125 mls/hr Metronidazole (Flagyl) 500 mg in 100 mls @ 100 mls/hr IVPB Q8 [facility] PRN Reason: Protocol Last Admin: 03/16/17 06:44 Dose: 100 mls/hr Ceftriaxone Sodium (Rocephin 1 Gram Ivpb) 1 gm in 100 mls @ 100 mls/hr IVPB DAILY [facility] PRN Reason: Protocol Last Admin: 03/15/17 15:34 Dose: 100 mls/hr Ketorolac Tromethamine (Toradol) 30 mg IVP Q6 PRN PRN Reason: Pain, severe (8-10) Stop: 03/17/17 23:59 Last Admin: 03/16/17 06:44 Dose: 30 mg Ondansetron HCl (Zofran Inj) 4 mg IVP Q6H PRN PRN Reason: Nausea/Vomiting Last Admin: 03/15/17 21:41 Dose: 4 mg Pantoprazole Sodium (Protonix Inj) 40 mg IVP DAILY [facility] Last Admin: 03/15/17 16:39 Dose: 40 mg Physical Exam - Constitutional Appears: Well, Non-toxic, No Acute Distress - Head Exam Head Exam: ATRAUMATIC, NORMOCEPHALIC - Eye Exam Eye Exam: Normal appearance - ENT Exam ENT Exam: Mucous Membranes Moist, Normal Exam - Respiratory Exam Respiratory Exam: Clear to Auscultation Bilateral, NORMAL BREATHING PATTERN. absent: Rales, Rhonchi, Wheezes - Cardiovascular Exam Cardiovascular Exam: REGULAR RHYTHM, +S1, +S2 - GI/Abdominal Exam GI & Abdominal Exam: Normal Bowel Sounds, Soft, Tenderness (RUQ). absent: Organomegaly, Rebound, Rigid - Neurological Exam Neurological exam: Alert, Oriented x3 - Psychiatric Exam Psychiatric exam: Normal Affect, Normal Mood - Skin Skin Exam: Dry, Intact, Normal Color, Warm Results - Vital Signs Recent Vital Signs: Last Vital Signs Temp 97.9 F 03/16/17 07:30 Pulse 70 03/16/17 07:30 Resp 20 03/16/17 07:30 BP 111/61 03/16/17 07:30 Pulse Ox 97 03/16/17 07:30 - Labs Result Diagrams: 03/16/17 06:30 03/16/17 06:30 Labs: Laboratory Results - last 24 hr 03/15/17 03/16/17 03/16/17 18:28 06:30 06:30 WBC 6.7 D RBC 4.02 Hgb 12.9 Hct 37.3 MCV 92.8 MCH 32.1 MCHC 34.6 RDW 13.1 Plt Count 247 MPV 10.3 APTT 29.1 Sodium 138 Potassium 3.6 Chloride 108 H Carbon Dioxide 22 Anion Gap 12 BUN 11 Creatinine 0.6 Est GFR ( Amer) > 60 Est GFR (Non-Af Amer) > 60 Random Glucose 81 Calcium 7.8 L Total Bilirubin 0.8 AST 21 ALT 25 Alkaline Phosphatase 48 Total Protein 6.3 Albumin 3.4 Globulin 2.9 Albumin/Globulin Ratio 1.2 Assessment & Plan - Assessment and Plan (Free Text) Assessment: 40 year old female with h/o Crohn's ileitis currently on methotrexate and remicade, admitted with small bowel obstruction and distal ileal obstruction 1. Crohn's ileitis - -Start clears once able to tolerating diet -having BM -okay with conservative management for now including NG tube -NG still has sig output -Antiemetics PRN -surgery on board -no indication for antibiotics at this point for crohn's disease -will likely need to follow-up with her out GI physician Timoteo Chan <Jefferson Chan - Last Filed: 03/16/17 12:34> Meds - Medications Medications: Current Medications Heparin Sodium (Porcine) (Heparin) 5,000 units SC Q12 [facility] Last Admin: 03/16/17 09:38 Dose: 5,000 units Hydromorphone HCl (Dilaudid) 1 mg IVP Q6H PRN PRN Reason: Pain, severe (8-10) Sodium Chloride (Sodium Chloride 0.9%) 1,000 mls @ 125 mls/hr IV .Q8H [facility] Last Admin: 03/15/17 15:12 Dose: 125 mls/hr Metronidazole (Flagyl) 500 mg in 100 mls @ 100 mls/hr IVPB Q8 [facility] PRN Reason: Protocol Last Admin: 03/16/17 06:44 Dose: 100 mls/hr Ceftriaxone Sodium (Rocephin 1 Gram Ivpb) 1 gm in 100 mls @ 100 mls/hr IVPB DAILY [facility] PRN Reason: Protocol Last Admin: 03/16/17 09:42 Dose: 100 mls/hr Ketorolac Tromethamine (Toradol) 30 mg IVP Q6 PRN PRN Reason: Pain, moderate (4-7) Stop: 03/17/17 23:59 Ondansetron HCl (Zofran Inj) 4 mg IVP Q6H PRN PRN Reason: Nausea/Vomiting Last Admin: 03/15/17 21:41 Dose: 4 mg Pantoprazole Sodium (Protonix Inj) 40 mg IVP DAILY [facility] Last Admin: 03/16/17 09:37 Dose: 40 mg Results - Vital Signs Recent Vital Signs: Last Vital Signs Temp 97.9 F 03/16/17 07:30 Pulse 70 03/16/17 07:30 Resp 20 03/16/17 07:30 BP 111/61 03/16/17 07:30 Pulse Ox 97 03/16/17 07:30 - Labs Result Diagrams: 03/16/17 06:30 03/16/17 06:30 Labs: Laboratory Results - last 24 hr 03/15/17 03/16/17 03/16/17 18:28 06:30 06:30 WBC 6.7 D RBC 4.02 Hgb 12.9 Hct 37.3 MCV 92.8 MCH 32.1 MCHC 34.6 RDW 13.1 Plt Count 247 MPV 10.3 APTT 29.1 Sodium 138 Potassium 3.6 Chloride 108 H Carbon Dioxide 22 Anion Gap 12 BUN 11 Creatinine 0.6 Est GFR ( Amer) > 60 Est GFR (Non-Af Amer) > 60 Random Glucose 81 Calcium 7.8 L Total Bilirubin 0.8 AST 21 ALT 25 Alkaline Phosphatase 48 Total Protein 6.3 Albumin 3.4 Globulin 2.9 Albumin/Globulin Ratio 1.2 Attending/Attestation - Attestation I have personally seen and examined this patient.: Yes I have fully participated in the care of the patient.: Yes I have reviewed all pertinent clinical information: Yes Notes (Text): 03/16/17 12:32 40 year old female with long standing h/o Crohn's disease (Dx 2004) on multiple different therapies over the years, currently remicade/MTX, admitted with SBO. 1. Crohn's disease 2. Small bowel obstruction Plan: -clinicaly improving with conservative measures -agree with NGT decompression -IV hydration / pain control / anti -emetics -if feeling better, consider clamping NG and trial of CLD -surgery following -patient may ultimately need surgery if she has recurrent obstructions -outpatient follow up with her GI advised -will follow
[2017-03-16] MEDS: cefTRIAXone 1 gm 1 GM/100 ML BAG IVPB SCH (09:42)
[2017-03-16] MEDS ORDERED: HYDROmorphone 0.5 mg/0.5 ml ISec IVP PRN (10:28)
[2017-03-16] MEDS ORDERED: HYDROmorphone 1 mg/ml ISec IVP STA (10:30)
--- NOTE | 2017-03-16 10:41 | CP.PCM.PN ---
Subjective - Date & Time of Evaluation Date of Evaluation: 03/16/17 Time of Evaluation: 10:37 - Subjective Subjective: General Surgery Progress Note: Resident: Dayna Attending: Jeffrey HPI: Pt seen and examined at bedside. Doing well with no complaints at this time. Pain has improved. -N/V/F/SOB/CP. +Flatus, +BM. Objective - Vital Signs/Intake and Output Vital Signs (last 24 hours): Temp Pulse Resp BP Pulse Ox 97.9 F 70 20 111/61 97 03/16/17 07:30 03/16/17 07:30 03/16/17 07:30 03/16/17 07:30 03/16/17 07:30 Intake and Output: 03/16/17 03/16/17 06:59 18:59 Intake Total 0 Output Total 1100 Balance 0 -1100 - Medications Medications: Current Medications Heparin Sodium (Porcine) (Heparin) 5,000 units SC Q12 [facility] Last Admin: 03/16/17 09:38 Dose: 5,000 units Hydromorphone HCl (Dilaudid) 1 mg IVP Q6H PRN PRN Reason: Pain, severe (8-10) Sodium Chloride (Sodium Chloride 0.9%) 1,000 mls @ 125 mls/hr IV .Q8H [facility] Last Admin: 03/15/17 15:12 Dose: 125 mls/hr Metronidazole (Flagyl) 500 mg in 100 mls @ 100 mls/hr IVPB Q8 [facility] PRN Reason: Protocol Last Admin: 03/16/17 06:44 Dose: 100 mls/hr Ceftriaxone Sodium (Rocephin 1 Gram Ivpb) 1 gm in 100 mls @ 100 mls/hr IVPB DAILY [facility] PRN Reason: Protocol Last Admin: 03/16/17 09:42 Dose: 100 mls/hr Ketorolac Tromethamine (Toradol) 30 mg IVP Q6 PRN PRN Reason: Pain, moderate (4-7) Stop: 03/17/17 23:59 Ondansetron HCl (Zofran Inj) 4 mg IVP Q6H PRN PRN Reason: Nausea/Vomiting Last Admin: 03/15/17 21:41 Dose: 4 mg Pantoprazole Sodium (Protonix Inj) 40 mg IVP DAILY [facility] Last Admin: 03/16/17 09:37 Dose: 40 mg - Labs Labs: 03/16/17 06:30 03/16/17 06:30 PT 10.8 Seconds (9.9-11.8) 03/15/17 08:50 INR 1.00 (0.93-1.08) 03/15/17 08:50 APTT 29.1 Seconds (23.7-30.8) 03/15/17 18:28 - Constitutional Appears: Well - Head Exam Head Exam: NORMAL INSPECTION - Eye Exam Eye Exam: EOMI - ENT Exam ENT Exam: Mucous Membranes Moist - Respiratory Exam Respiratory Exam: Clear to Ausculation Bilateral - Cardiovascular Exam Cardiovascular Exam: REGULAR RHYTHM - GI/Abdominal Exam GI & Abdominal Exam: Soft. absent: Distended, Tenderness - Neurological Exam Neurological Exam: Alert, Awake, Oriented x3 Assessment and Plan - Assessment and Plan (Free Text) Assessment: 42 y/o WF w/ SBO * NGT drained 800 overnight. Continue NGT on low continuos suction * NPO * Pain control * IVF * Will discuss with Dr. Jeffrey Mcintosh DO PGY-1
--- NOTE | 2017-03-16 12:24 | RAD ---
HISTORY: f/u SBO COMPARISON: 01/21/2017 FINDINGS: BOWEL: Normal. No obstruction. No free air. BONES: Normal. OTHER FINDINGS: Nasogastric tube in satisfactory position probably terminating in the vertical portion of the duodenum IMPRESSION: No active disease.
--- NOTE | 2017-03-16 14:23 | CP.PCM.PN ---
<Nel Andres - Last Filed: 03/16/17 14:19> Subjective - Date & Time of Evaluation Date of Evaluation: 03/16/17 Time of Evaluation: 14:20 - Subjective Subjective: Patient has been seen and examined. She reports slight nausea w/o vomiting. Patient has had 1 Bowel movement which was soft and non-blood. She still has no appetite. She denies any headache, chills, CP, SOB, constipation, or urinary symptoms. Objective - Vital Signs/Intake and Output Vital Signs (last 24 hours): Temp Pulse Resp BP Pulse Ox 97.9 F 70 20 111/61 97 03/16/17 07:30 03/16/17 07:30 03/16/17 07:30 03/16/17 07:30 03/16/17 07:30 Intake and Output: 03/16/17 03/16/17 06:59 18:59 Intake Total 0 Output Total 1100 Balance 0 -1100 - Medications Medications: Current Medications Heparin Sodium (Porcine) (Heparin) 5,000 units SC Q12 [facility] [place] Last Admin: 03/16/17 09:38 Dose: 5,000 units Hydromorphone HCl (Dilaudid) 1 mg IVP Q6H PRN PRN Reason: Pain, severe (8-10) Sodium Chloride (Sodium Chloride 0.9%) 1,000 mls @ 125 mls/hr IV .Q8H [facility] [place] Last Admin: 03/15/17 15:12 Dose: 125 mls/hr Metronidazole (Flagyl) 500 mg in 100 mls @ 100 mls/hr IVPB Q8 [facility] [place] PRN Reason: Protocol Last Admin: 03/16/17 06:44 Dose: 100 mls/hr Ceftriaxone Sodium (Rocephin 1 Gram Ivpb) 1 gm in 100 mls @ 100 mls/hr IVPB DAILY [facility] [place] PRN Reason: Protocol Last Admin: 03/16/17 09:42 Dose: 100 mls/hr Ketorolac Tromethamine (Toradol) 30 mg IVP Q6 PRN PRN Reason: Pain, moderate (4-7) Stop: 03/17/17 23:59 Ondansetron HCl (Zofran Inj) 4 mg IVP Q6H PRN PRN Reason: Nausea/Vomiting Last Admin: 03/15/17 21:41 Dose: 4 mg Pantoprazole Sodium (Protonix Inj) 40 mg IVP DAILY [facility] Last Admin: 03/16/17 09:37 Dose: 40 mg - Labs Labs: 03/16/17 06:30 03/16/17 06:30 PT 10.8 Seconds (9.9-11.8) 03/15/17 08:50 INR 1.00 (0.93-1.08) 03/15/17 08:50 APTT 29.1 Seconds (23.7-30.8) 03/15/17 18:28 - Constitutional Appears: Well, Non-toxic, No Acute Distress - Head Exam Head Exam: ATRAUMATIC, NORMOCEPHALIC - Eye Exam Eye Exam: EOMI, Normal appearance - ENT Exam ENT Exam: Mucous Membranes Moist - Respiratory Exam Respiratory Exam: Clear to Ausculation Bilateral. absent: Rales, Rhonchi, Wheezes, Stridor - Cardiovascular Exam Cardiovascular Exam: RRR, +S1, +S2 - GI/Abdominal Exam GI & Abdominal Exam: Soft, Tenderness, Normal Bowel Sounds - Extremities Exam Extremities Exam: absent: Pedal Edema - Neurological Exam Neurological Exam: Alert, Oriented x3 - Psychiatric Exam Psychiatric exam: Normal Affect, Normal Mood Assessment and Plan - Assessment and Plan (Free Text) Assessment: 42yo female with PMH of Crohns disease admitted for abd pain with n/ v most likely 2/2 SBO with new terminal ileum stricture per CT scan. Plan: 1. Abd pain with nausea/vomiting -Likely 2/2 dilated small bowel with new terminal ileum stricture per CT vs dilated appendix also seen on CT -Leukocytosis 15.9 on admission, resolved this morning (6.7) -NG tube on low continuous suction, drained 800mL overnight -Pt had only toradol x2 overnight, added dilaudid this morning for episode of severe pain -Toradol (mild-mod) and dilaudid (severe) PRN for pain control -Zofran PRN for nausea -Surg and GI recs appreciated 2. Leukocytosis - resolved -WBC 6.7 -Cont rocephin and flagyl GI ppx - PTX DVT ppx - heparin sc Dispo: f/u GI/surg recs, continue pain control with toradol and dilaudid PRN. Patient Seen, examined, and discussed with Attending. Nel Andres PGY-1 <Jakub Garcia - Last Filed: 03/17/17 14:37> Objective - Vital Signs/Intake and Output Vital Signs (last 24 hours): Temp Pulse Resp BP Pulse Ox 97.6 F 63 20 106/73 98 03/17/17 07:30 03/17/17 07:30 03/17/17 07:30 03/17/17 07:30 03/17/17 07:30 Intake and Output: 03/17/17 03/17/17 06:59 18:59 Intake Total 3740 Balance 3740 - Medications Medications: Current Medications Benzocaine/Menthol (Cepacol Sore Throat) 1 nori MT Q2H PRN PRN Reason: Sore Throat Last Admin: 03/16/17 17:43 Dose: 1 nori Heparin Sodium (Porcine) (Heparin) 5,000 units SC Q12 [facility] [place] Last Admin: 03/17/17 12:18 Dose: Not Given Hydromorphone HCl (Dilaudid) 0.5 mg SC Q6H PRN PRN Reason: Pain, severe (8-10) Sodium Chloride (Sodium Chloride 0.9%) 1,000 mls @ 125 mls/hr IV .Q8H [facility] [place] Last Admin: 03/17/17 10:51 Dose: 125 mls/hr Ketorolac Tromethamine (Toradol) 30 mg IVP Q6 PRN PRN Reason: Pain, moderate (4-7) Stop: 03/17/17 23:59 Last Admin: 03/17/17 01:03 Dose: 30 mg Ondansetron HCl (Zofran Inj) 4 mg IVP Q6H PRN PRN Reason: Nausea/Vomiting Last Admin: 03/16/17 20:59 Dose: 4 mg Pantoprazole Sodium (Protonix Inj) 40 mg IVP DAILY [facility] [place] Last Admin: 03/17/17 10:52 Dose: 40 mg - Labs Labs: 03/17/17 08:30 03/17/17 08:30 PT 10.8 Seconds (9.9-11.8) 03/15/17 08:50 INR 1.00 (0.93-1.08) 03/15/17 08:50 APTT 29.1 Seconds (23.7-30.8) 03/15/17 18:28 Attending/Attestation - Attestation I have personally seen and examined this patient.: Yes I have fully participated in the care of the patient.: Yes I have reviewed all pertinent clinical information, including history, physical exam and plan: Yes Notes (Text): 03/17/17 14:32 attending note; Patient seen and examined with the resident. Patient is a 42-year-old female with a past medical history of Crohn's disease is admitted with abdominal pain/bowel obstruction. Currently has NG tube in place. Surgery and GI evaluation appreciated. continue antiemetics. Needs close follow-up with GI as outpatient. upon discharge Follow-up with PMD Dr. Martinez.
[2017-03-16] MEDS: Sodium Chloride 0.9% 1,000 ML IV SCH ×2 (15:10→16:55)
[2017-03-16] MEDS ORDERED: Benzocaine/Menthol (Cepacol) Lozenge MT PRN (16:23)
[2017-03-16 20:15] LABS: URINE BILIRUBIN SMALL (NEGATIVE); URINE BLOOD TRACE-LYSED (NEGATIVE); URINE GLUCOSE (UA) NEGATIVE (NEGATIVE); URINE LEUKOCYTE ESTERASE TRACE Leu/uL (NEGATIVE); URINE NITRATE NEGATIVE (NEGATIVE); URINE PROTEIN TRACE mg/dL (<30 mg/dL)
[2017-03-16 20:17] LABS: URINE APPEARANCE CLEAR (CLEAR); URINE COLOR YELLOW (YELLOW)
[2017-03-16] MEDS: HYDROmorphone 0.5 mg/0.5 ml ISec IVP PRN (20:59)
[2017-03-17] MEDS: HYDROmorphone 0.5 mg/0.5 ml ISec IVP PRN (02:52)
[2017-03-17] MEDS: metroNIDAZOLE IV 500 mg/100 ml 500 MG/100 ML BAG IVPB SCH (05:20)
[2017-03-17 08:27] VITALS: O2SAT 98
[2017-03-17 08:53] LABS: HEMOGLOBIN 12.6 gm/dL (12.0-16.0); MEAN CELL VOLUME 93.4 fL (80.0-105.0); MEAN CORPUSCULAR HGB CONC 34.2 g/dl (31.0-37.0); RBC 3.94 10^6/uL (3.5-6.1); RED CELL DISTRIBUTION WIDTH 12.8 % (11.5-14.5); WHITE BLOOD COUNT 6.2 10^3/ul (4.5-11.0)
--- NOTE | 2017-03-17 09:08 | CP.PCM.PN ---
Subjective - Date & Time of Evaluation Date of Evaluation: 03/17/17 Time of Evaluation: 09:04 - Subjective Subjective: General Surgery Progress Note Resident: Dayna Attending: Jeffrey HPI: Patient seen and examined at bedside. Patient doing well with no complaints at this time. Denies N/V/D/CP/SOB. Objective - Vital Signs/Intake and Output Vital Signs (last 24 hours): Temp Pulse Resp BP Pulse Ox 97.6 F 63 20 106/73 98 03/17/17 07:30 03/17/17 07:30 03/17/17 07:30 03/17/17 07:30 03/17/17 07:30 Intake and Output: 03/17/17 03/17/17 06:59 18:59 Intake Total 3740 Balance 3740 - Medications Medications: Current Medications Benzocaine/Menthol (Cepacol Sore Throat) 1 nori MT Q2H PRN PRN Reason: Sore Throat Last Admin: 03/16/17 17:43 Dose: 1 nori Heparin Sodium (Porcine) (Heparin) 5,000 units SC Q12 [facility] Last Admin: 03/16/17 23:36 Dose: 5,000 units Hydromorphone HCl (Dilaudid) 1 mg IVP Q6H PRN PRN Reason: Pain, severe (8-10) Last Admin: 03/17/17 02:52 Dose: 1 mg Sodium Chloride (Sodium Chloride 0.9%) 1,000 mls @ 125 mls/hr IV .Q8H [facility] Last Admin: 03/16/17 16:55 Dose: Not Given Metronidazole (Flagyl) 500 mg in 100 mls @ 100 mls/hr IVPB Q8 [facility] PRN Reason: Protocol Last Admin: 03/17/17 05:20 Dose: 100 mls/hr Ceftriaxone Sodium (Rocephin 1 Gram Ivpb) 1 gm in 100 mls @ 100 mls/hr IVPB DAILY [facility] PRN Reason: Protocol Last Admin: 03/16/17 09:42 Dose: 100 mls/hr Ketorolac Tromethamine (Toradol) 30 mg IVP Q6 PRN PRN Reason: Pain, moderate (4-7) Stop: 03/17/17 23:59 Last Admin: 03/17/17 01:03 Dose: 30 mg Ondansetron HCl (Zofran Inj) 4 mg IVP Q6H PRN PRN Reason: Nausea/Vomiting Last Admin: 03/16/17 20:59 Dose: 4 mg Pantoprazole Sodium (Protonix Inj) 40 mg IVP DAILY [facility] Last Admin: 03/16/17 09:37 Dose: 40 mg - Labs Labs: 03/17/17 08:30 03/16/17 06:30 PT 10.8 Seconds (9.9-11.8) 03/15/17 08:50 INR 1.00 (0.93-1.08) 03/15/17 08:50 APTT 29.1 Seconds (23.7-30.8) 03/15/17 18:28 - Constitutional Appears: Well - ENT Exam ENT Exam: Mucous Membranes Moist - Respiratory Exam Respiratory Exam: Clear to Ausculation Bilateral - Cardiovascular Exam Cardiovascular Exam: REGULAR RHYTHM - GI/Abdominal Exam GI & Abdominal Exam: Soft. absent: Distended, Tenderness - Neurological Exam Neurological Exam: Alert, Awake, Oriented x3 Assessment and Plan - Assessment and Plan (Free Text) Assessment: 42 y/o WF w/SBO * Pull NGT * CLD * Can d/c if diet tolerated * will discuss with Dr. Jeffrey Mcintosh DO PGY-1
[2017-03-17 09:15] LABS: ALB/GLOB RATIO 1.3 (1.1-1.8); ALBUMIN 3.7 g/dL (3.0-4.8); ALT/SGPT 30 U/L (7-56); AST/SGOT 19 U/L (15-39); BLOOD UREA NITROGEN 5 mg/dL (7-21); CALCIUM 7.7 mg/dL (8.4-10.5); GFR AFRICAN-AMERICAN > 60; GFR NON-AFRICAN AMERICAN > 60
--- NOTE | 2017-03-17 09:19 | RAD ---
HISTORY: NGT placement COMPARISON: No prior. FINDINGS: LUNGS: In situ NGT, the tip of which lies right parasagittal upper/ mid abdomen. Poor inspiration with low lung volumes, mild crowded bronchovascular markings and mild bibasilar atelectasis PLEURA: No significant pleural effusion identified, no pneumothorax apparent. CARDIOVASCULAR: Normal. OSSEOUS STRUCTURES: No significant abnormalities. VISUALIZED UPPER ABDOMEN: Normal. OTHER FINDINGS: None. IMPRESSION: In situ NGT, the tip of which lies right parasagittal upper/ mid abdomen. Poor inspiration with low lung volumes, mild crowded bronchovascular markings and mild bibasilar atelectasis
--- NOTE | 2017-03-17 09:42 | CP.PCM.PN ---
<Dillon Trejo - Last Filed: 03/17/17 09:39> Subjective - Date & Time of Evaluation Date of Evaluation: 03/17/17 Time of Evaluation: 09:00 - Subjective Subjective: PGY 4 GI follow-up Pt seen and examined bedside No started PO intake last night able to tolerate but had some abd discomfort and bloating afterwards Bg was place back to suction in the AM to see if there is any sig output Pt states that she seems better since admission, but still concerned Denies any abd pain Denies any nause, vomiting +BM last night +flatus ROS: 12-point ROS conducted, neg other than previously states above Objective - Vital Signs/Intake and Output Vital Signs (last 24 hours): Temp Pulse Resp BP Pulse Ox 97.6 F 63 20 106/73 98 03/17/17 07:30 03/17/17 07:30 03/17/17 07:30 03/17/17 07:30 03/17/17 07:30 Intake and Output: 03/17/17 03/17/17 06:59 18:59 Intake Total 3740 Balance 3740 - Medications Medications: Current Medications Benzocaine/Menthol (Cepacol Sore Throat) 1 nori MT Q2H PRN PRN Reason: Sore Throat Last Admin: 03/16/17 17:43 Dose: 1 nori Heparin Sodium (Porcine) (Heparin) 5,000 units SC Q12 [facility] Last Admin: 03/16/17 23:36 Dose: 5,000 units Hydromorphone HCl (Dilaudid) 1 mg IVP Q6H PRN PRN Reason: Pain, severe (8-10) Last Admin: 03/17/17 02:52 Dose: 1 mg Sodium Chloride (Sodium Chloride 0.9%) 1,000 mls @ 125 mls/hr IV .Q8H [facility] Last Admin: 03/16/17 16:55 Dose: Not Given Metronidazole (Flagyl) 500 mg in 100 mls @ 100 mls/hr IVPB Q8 [facility] PRN Reason: Protocol Last Admin: 03/17/17 05:20 Dose: 100 mls/hr Ceftriaxone Sodium (Rocephin 1 Gram Ivpb) 1 gm in 100 mls @ 100 mls/hr IVPB DAILY [facility] PRN Reason: Protocol Last Admin: 03/16/17 09:42 Dose: 100 mls/hr Ketorolac Tromethamine (Toradol) 30 mg IVP Q6 PRN PRN Reason: Pain, moderate (4-7) Stop: 03/17/17 23:59 Last Admin: 03/17/17 01:03 Dose: 30 mg Ondansetron HCl (Zofran Inj) 4 mg IVP Q6H PRN PRN Reason: Nausea/Vomiting Last Admin: 03/16/17 20:59 Dose: 4 mg Pantoprazole Sodium (Protonix Inj) 40 mg IVP DAILY [facility] Last Admin: 03/16/17 09:37 Dose: 40 mg - Labs Labs: 03/17/17 08:30 03/17/17 08:30 PT 10.8 Seconds (9.9-11.8) 03/15/17 08:50 INR 1.00 (0.93-1.08) 03/15/17 08:50 APTT 29.1 Seconds (23.7-30.8) 03/15/17 18:28 - Constitutional Appears: Non-toxic - Head Exam Head Exam: ATRAUMATIC, NORMOCEPHALIC - Eye Exam Eye Exam: Normal appearance - ENT Exam ENT Exam: Mucous Membranes Dry, Mucous Membranes Moist, Normal Exam - Respiratory Exam Respiratory Exam: Clear to Ausculation Bilateral, NORMAL BREATHING PATTERN. absent: Rales, Rhonchi, Wheezes, Respiratory Distress - Cardiovascular Exam Cardiovascular Exam: REGULAR RHYTHM, +S1, +S2 - GI/Abdominal Exam GI & Abdominal Exam: Soft, Tenderness (RUQ), Normal Bowel Sounds. absent: Distended, Firm, Guarding, Rigid, Organomegaly - Neurological Exam Neurological Exam: Alert, Awake, Oriented x3 - Psychiatric Exam Psychiatric exam: Normal Affect, Normal Mood - Skin Skin Exam: Dry, Intact, Normal Color, Warm Assessment and Plan - Assessment and Plan (Free Text) Assessment: 40 year old female with h/o Crohn's ileitis currently on methotrexate and remicade, admitted with small bowel obstruction and distal ileal obstruction 1. Crohn's ileitis - -advance diet as tolerated -having BM -Antiemetics PRN -surgery on board, may pull NG todau -no indication for antibiotics or med tx at this point for crohn's disease -will likely need to follow-up with her out GI physician within 1-2w after discharge -can restart her methotrexate and remicade as outpt 2. Small bowel obstruction Will DPedroW Dr. Chan <Jefferson Chan - Last Filed: 03/17/17 18:43> Objective - Vital Signs/Intake and Output Vital Signs (last 24 hours): Temp Pulse Resp BP Pulse Ox 97.6 F 63 20 106/73 98 03/17/17 07:30 03/17/17 07:30 03/17/17 07:30 03/17/17 07:30 03/17/17 07:30 Intake and Output: 03/17/17 03/17/17 06:59 18:59 Intake Total 3740 840 Balance 3740 840 - Medications Medications: Current Medications Benzocaine/Menthol (Cepacol Sore Throat) 1 nori MT Q2H PRN PRN Reason: Sore Throat Last Admin: 03/16/17 17:43 Dose: 1 nori Heparin Sodium (Porcine) (Heparin) 5,000 units SC Q12 [facility] Last Admin: 03/17/17 12:18 Dose: Not Given Hydromorphone HCl (Dilaudid) 0.5 mg SC Q6H PRN PRN Reason: Pain, severe (8-10) Sodium Chloride (Sodium Chloride 0.9%) 1,000 mls @ 125 mls/hr IV .Q8H [facility] Last Admin: 03/17/17 10:51 Dose: 125 mls/hr Ketorolac Tromethamine (Toradol) 30 mg IVP Q6 PRN PRN Reason: Pain, moderate (4-7) Stop: 03/17/17 23:59 Last Admin: 03/17/17 01:03 Dose: 30 mg Ondansetron HCl (Zofran Inj) 4 mg IVP Q6H PRN PRN Reason: Nausea/Vomiting Last Admin: 03/16/17 20:59 Dose: 4 mg Pantoprazole Sodium (Protonix Inj) 40 mg IVP DAILY [facility] Last Admin: 03/17/17 10:52 Dose: 40 mg - Labs Labs: 03/17/17 08:30 03/17/17 08:30 PT 10.8 Seconds (9.9-11.8) 03/15/17 08:50 INR 1.00 (0.93-1.08) 03/15/17 08:50 APTT 29.1 Seconds (23.7-30.8) 03/15/17 18:28 Attending/Attestation - Attestation I have personally seen and examined this patient.: Yes I have fully participated in the care of the patient.: Yes I have reviewed all pertinent clinical information, including history, physical exam and plan: Yes Notes (Text): 03/17/17 18:42 40 year old female with long standing h/o Crohn's disease (Dx 2004) on multiple different therapies over the years, currently remicade/MTX, admitted with SBO. 1. Crohn's disease 2. Small bowel obstruction Plan: -clinicaly improving with conservative measures -NGT removed -tolerating CLD -advance to Full liquids and low residue -anticipate dc home tomorrow if doing well -supportive care -follow up with her GI outpatient
--- NOTE | 2017-03-17 10:28 | CP.PCM.PN ---
<Dominique Jensen - Last Filed: 03/17/17 10:34> Subjective - Date & Time of Evaluation Date of Evaluation: 03/17/17 Time of Evaluation: 10:24 - Subjective Subjective: Medicine Progress Note Patient seen and examined at bedside. Overnight patient felt distended, but reports she feels better this AM. She is passing gas and says her pain medicine is giving her a headache and would like it to be decreased. She denies having any n/v/d, numbness/tingling, CP, SOB, fever or chills. Objective - Vital Signs/Intake and Output Vital Signs (last 24 hours): Temp Pulse Resp BP Pulse Ox 97.6 F 63 20 106/73 98 03/17/17 07:30 03/17/17 07:30 03/17/17 07:30 03/17/17 07:30 03/17/17 07:30 Intake and Output: 03/17/17 03/17/17 06:59 18:59 Intake Total 3740 Balance 3740 - Medications Medications: Current Medications Benzocaine/Menthol (Cepacol Sore Throat) 1 nori MT Q2H PRN PRN Reason: Sore Throat Last Admin: 03/16/17 17:43 Dose: 1 nori Heparin Sodium (Porcine) (Heparin) 5,000 units SC Q12 [facility] Last Admin: 03/16/17 23:36 Dose: 5,000 units Hydromorphone HCl (Dilaudid) 1 mg IVP Q6H PRN PRN Reason: Pain, severe (8-10) Last Admin: 03/17/17 02:52 Dose: 1 mg Sodium Chloride (Sodium Chloride 0.9%) 1,000 mls @ 125 mls/hr IV .Q8H [facility] Last Admin: 03/16/17 16:55 Dose: Not Given Metronidazole (Flagyl) 500 mg in 100 mls @ 100 mls/hr IVPB Q8 [facility] PRN Reason: Protocol Last Admin: 03/17/17 05:20 Dose: 100 mls/hr Ceftriaxone Sodium (Rocephin 1 Gram Ivpb) 1 gm in 100 mls @ 100 mls/hr IVPB DAILY [facility] PRN Reason: Protocol Last Admin: 03/16/17 09:42 Dose: 100 mls/hr Ketorolac Tromethamine (Toradol) 30 mg IVP Q6 PRN PRN Reason: Pain, moderate (4-7) Stop: 03/17/17 23:59 Last Admin: 03/17/17 01:03 Dose: 30 mg Ondansetron HCl (Zofran Inj) 4 mg IVP Q6H PRN PRN Reason: Nausea/Vomiting Last Admin: 03/16/17 20:59 Dose: 4 mg Pantoprazole Sodium (Protonix Inj) 40 mg IVP DAILY [facility] Last Admin: 03/16/17 09:37 Dose: 40 mg - Labs Labs: 03/17/17 08:30 03/17/17 08:30 PT 10.8 Seconds (9.9-11.8) 03/15/17 08:50 INR 1.00 (0.93-1.08) 03/15/17 08:50 APTT 29.1 Seconds (23.7-30.8) 03/15/17 18:28 - Constitutional Appears: No Acute Distress - Head Exam Head Exam: ATRAUMATIC, NORMAL INSPECTION, NORMOCEPHALIC - Eye Exam Eye Exam: Normal appearance, PERRL Pupil Exam: NORMAL ACCOMODATION, PERRL - ENT Exam ENT Exam: Mucous Membranes Moist Additional comments: NGT in place on suction - Neck Exam Neck Exam: Full ROM - Respiratory Exam Respiratory Exam: Clear to Ausculation Bilateral, NORMAL BREATHING PATTERN. absent: Rales, Rhonchi, Wheezes - Cardiovascular Exam Cardiovascular Exam: REGULAR RHYTHM, +S1, +S2. absent: Gallop, Rubs, Murmur - GI/Abdominal Exam GI & Abdominal Exam: Distended, Soft, Normal Bowel Sounds. absent: Rigid, Tenderness, Mass, Rebound - Extremities Exam Extremities Exam: Normal Inspection. absent: Calf Tenderness, Pedal Edema - Neurological Exam Neurological Exam: Alert, Awake, CN II-XII Intact, Oriented x3 - Psychiatric Exam Psychiatric exam: Normal Affect, Normal Mood - Skin Skin Exam: Dry, Intact, Normal Color, Warm Assessment and Plan - Assessment and Plan (Free Text) Assessment: This is a 42Y F with PMH of Crohns admitted for SBO. Plan: 1. SBO - Pt passing gas - NGT to be removed today - Advance diet as tolerated as per surgery - Zofran prn nausea, pain control (will taper down dilaudid) - Surgery consulted- recs appreciated - As per GI, there is no indication for abx at this time- will dc - Pt afebrile, no leukocytosis 2. Crohns - GI consulted- recs appreciated - Pt can follow up as outpt for further treatment 3. Hypocalcemia- mild - Oscal ordered - Continue to monitor GI ppx: PTX DVT ppx: heparin sc Dispo: Continue to monitor BM. As per GI, Pt can continue Crohns treatment as outpatient and follow up with her GI doctor. Patient Seen, reviewed and discussed with Attending. Adam Jensen PGY2 <Jakub Garcia - Last Filed: 03/17/17 14:38> Objective - Vital Signs/Intake and Output Vital Signs (last 24 hours): Temp Pulse Resp BP Pulse Ox 97.6 F 63 20 106/73 98 03/17/17 07:30 03/17/17 07:30 03/17/17 07:30 03/17/17 07:30 03/17/17 07:30 Intake and Output: 03/17/17 03/17/17 06:59 18:59 Intake Total 3740 Balance 3740 - Medications Medications: Current Medications Benzocaine/Menthol (Cepacol Sore Throat) 1 nori MT Q2H PRN PRN Reason: Sore Throat Last Admin: 03/16/17 17:43 Dose: 1 nori Heparin Sodium (Porcine) (Heparin) 5,000 units SC Q12 [facility] Last Admin: 03/17/17 12:18 Dose: Not Given Hydromorphone HCl (Dilaudid) 0.5 mg SC Q6H PRN PRN Reason: Pain, severe (8-10) Sodium Chloride (Sodium Chloride 0.9%) 1,000 mls @ 125 mls/hr IV .Q8H [facility] Last Admin: 03/17/17 10:51 Dose: 125 mls/hr Ketorolac Tromethamine (Toradol) 30 mg IVP Q6 PRN PRN Reason: Pain, moderate (4-7) Stop: 03/17/17 23:59 Last Admin: 03/17/17 01:03 Dose: 30 mg Ondansetron HCl (Zofran Inj) 4 mg IVP Q6H PRN PRN Reason: Nausea/Vomiting Last Admin: 03/16/17 20:59 Dose: 4 mg Pantoprazole Sodium (Protonix Inj) 40 mg IVP DAILY [facility] Last Admin: 03/17/17 10:52 Dose: 40 mg - Labs Labs: 03/17/17 08:30 03/17/17 08:30 PT 10.8 Seconds (9.9-11.8) 03/15/17 08:50 INR 1.00 (0.93-1.08) 03/15/17 08:50 APTT 29.1 Seconds (23.7-30.8) 03/15/17 18:28 Attending/Attestation - Attestation I have personally seen and examined this patient.: Yes I have fully participated in the care of the patient.: Yes I have reviewed all pertinent clinical information, including history, physical exam and plan: Yes Notes (Text): 03/17/17 14:38 attending note; Patient seen and examined with the resident. abdominal pain is improving. Patient had bowel movement last night. Patient is a 42-year-old female with a past medical history of Crohn's disease is admitted with abdominal pain/bowel obstruction. Currently has NG tube in place. Surgery and GI evaluation appreciated. NG tube to be removed today. Start clear liquid diet as tolerated. Needs close follow-up with GI as outpatient. patient was on methotrexate and Remicade. upon discharge Follow-up with PMD Dr. Martinez. 03/17/17 14:38
[2017-03-17] MEDS ORDERED: HYDROmorphone 0.5 mg/0.5 ml ISec SC PRN (10:30)
[2017-03-17] MEDS: Sodium Chloride 0.9% 1,000 ML IV SCH ×2 (10:51→19:01)
[2017-03-17] MEDS ORDERED: Sodium Chloride 0.9% 1,000 ML IV SCH (20:18)
[2017-03-18 07:23] LABS: HEMOGLOBIN 12.6 gm/dL (12.0-16.0); MEAN CELL VOLUME 91.9 fL (80.0-105.0); MEAN CORPUSCULAR HEMOGLOBIN 31.8 pg (25.0-35.0); MEAN CORPUSCULAR HGB CONC 34.6 g/dl (31.0-37.0); MEAN PLATELET VOLUME 10.3 fl (7.0-11.0); RBC 3.96 10^6/uL (3.5-6.1); RED CELL DISTRIBUTION WIDTH 12.8 % (11.5-14.5); WHITE BLOOD COUNT 6.2 10^3/ul (4.5-11.0)
[2017-03-18 07:38] LABS: ALB/GLOB RATIO 1.2 (1.1-1.8); ALBUMIN 3.6 g/dL (3.0-4.8); ALT/SGPT 29 U/L (7-56); AST/SGOT 31 U/L (15-39); BLOOD UREA NITROGEN 3 mg/dL (7-21); CALCIUM 8.2 mg/dL (8.4-10.5); GFR AFRICAN-AMERICAN > 60; GFR NON-AFRICAN AMERICAN > 60
[2017-03-18 08:14] VITALS: BP 129/81; PULSE 86; TEMP 98.7
--- NOTE | 2017-03-18 08:20 | CP.PCM.PN ---
Subjective - Date & Time of Evaluation Date of Evaluation: 03/18/17 Time of Evaluation: 08:16 - Subjective Subjective: General Surgery Note Resident: Dayna Attending: Jeffrey HPI: Patient seen and examined at bedside. Doing well with no complaints at this time. Pain has resolved. Taty diet. +flatus/+BM. Wants to eat. -N/V/D/F/SOB/ CP Objective - Vital Signs/Intake and Output Vital Signs (last 24 hours): Temp Pulse Resp BP Pulse Ox 98.7 F 86 20 129/81 98 03/18/17 08:13 03/18/17 08:13 03/18/17 08:13 03/18/17 08:13 03/18/17 08:13 Intake and Output: 03/18/17 03/18/17 06:59 18:59 Intake Total 840 Balance 840 - Medications Medications: Current Medications Benzocaine/Menthol (Cepacol Sore Throat) 1 nori MT Q2H PRN PRN Reason: Sore Throat Last Admin: 03/16/17 17:43 Dose: 1 nori Heparin Sodium (Porcine) (Heparin) 5,000 units SC Q12 [facility] Last Admin: 03/17/17 21:44 Dose: Not Given Hydromorphone HCl (Dilaudid) 0.5 mg SC Q6H PRN PRN Reason: Pain, severe (8-10) Sodium Chloride (Sodium Chloride 0.9%) 1,000 mls @ 75 mls/hr IV .[id number] [facility] Last Admin: 03/17/17 20:47 Dose: Not Given Ondansetron HCl (Zofran Inj) 4 mg IVP Q6H PRN PRN Reason: Nausea/Vomiting Last Admin: 03/16/17 20:59 Dose: 4 mg Pantoprazole Sodium (Protonix Inj) 40 mg IVP DAILY [facility] Last Admin: 03/17/17 10:52 Dose: 40 mg - Labs Labs: 03/18/17 07:00 03/18/17 07:00 PT 10.8 Seconds (9.9-11.8) 03/15/17 08:50 INR 1.00 (0.93-1.08) 03/15/17 08:50 APTT 29.1 Seconds (23.7-30.8) 07/26/17 18:28 - Constitutional Appears: Well, No Acute Distress - Eye Exam Eye Exam: EOMI - ENT Exam ENT Exam: Mucous Membranes Moist - Respiratory Exam Respiratory Exam: Clear to Ausculation Bilateral - Cardiovascular Exam Cardiovascular Exam: REGULAR RHYTHM - GI/Abdominal Exam GI & Abdominal Exam: Soft. absent: Distended, Tenderness - Neurological Exam Neurological Exam: Alert, Awake, Oriented x3 Assessment and Plan - Assessment and Plan (Free Text) Assessment: 42 y/o WF with SBO * regular diet * ok for d/c from surgical standpoint * will discuss with Dr. Jeffrey Mcintosh DO PGY-1
--- NOTE | 2017-03-18 09:15 | CP.PCM.PN ---
<Raghu Grimaldo - Last Filed: 03/18/17 09:11> Subjective - Date & Time of Evaluation Date of Evaluation: 03/18/17 Time of Evaluation: 08:00 - Subjective Subjective: PGY5 GI Fellow Progress Note Patient seen and examined bedside this morning. The patient states that she is feeling better with little discomfort today. Tolerated breakfast though she is uneasy about eating pancakes and asked for eggs/yogurt which she ate without issue. No nausea, vomiting. Passing stool/flatus. 12 system ROS performed and negative except where stated. Objective - Vital Signs/Intake and Output Vital Signs (last 24 hours): Temp Pulse Resp BP Pulse Ox 98.7 F 86 20 129/81 98 03/18/17 08:13 03/18/17 08:13 03/18/17 08:13 03/18/17 08:13 03/18/17 08:13 Intake and Output: 03/18/17 03/18/17 06:59 18:59 Intake Total 840 Balance 840 - Medications Medications: Current Medications Benzocaine/Menthol (Cepacol Sore Throat) 1 onri MT Q2H PRN PRN Reason: Sore Throat Last Admin: 03/16/17 17:43 Dose: 1 nori Heparin Sodium (Porcine) (Heparin) 5,000 units SC Q12 [facility] Last Admin: 03/17/17 21:44 Dose: Not Given Hydromorphone HCl (Dilaudid) 0.5 mg SC Q6H PRN PRN Reason: Pain, severe (8-10) Sodium Chloride (Sodium Chloride 0.9%) 1,000 mls @ 75 mls/hr IV .[id number] [facility] Last Admin: 03/17/17 20:47 Dose: Not Given Ondansetron HCl (Zofran Inj) 4 mg IVP Q6H PRN PRN Reason: Nausea/Vomiting Last Admin: 03/16/17 20:59 Dose: 4 mg Pantoprazole Sodium (Protonix Inj) 40 mg IVP DAILY [facility] Last Admin: 03/17/17 10:52 Dose: 40 mg - Labs Labs: 03/18/17 07:00 03/18/17 07:00 PT 10.8 Seconds (9.9-11.8) 03/15/17 08:50 INR 1.00 (0.93-1.08) 03/15/17 08:50 APTT 29.1 Seconds (23.7-30.8) 03/15/17 18:28 - Constitutional Appears: Non-toxic, No Acute Distress - Eye Exam Eye Exam: EOMI, PERRL - ENT Exam ENT Exam: Mucous Membranes Moist - Respiratory Exam Respiratory Exam: Clear to Ausculation Bilateral. absent: Rales, Rhonchi, Wheezes - Cardiovascular Exam Cardiovascular Exam: RRR, +S1, +S2 - GI/Abdominal Exam GI & Abdominal Exam: Soft, Tenderness (RLQ, minimal), Normal Bowel Sounds. absent: Distended, Firm, Guarding, Rigid, Organomegaly - Extremities Exam Extremities Exam: Normal Inspection. absent: Pedal Edema - Neurological Exam Neurological Exam: Alert, Awake, Oriented x3 - Psychiatric Exam Psychiatric exam: Normal Affect, Normal Mood - Skin Skin Exam: Dry, Warm Assessment and Plan - Assessment and Plan (Free Text) Assessment: Patient is a 40yo female with PMHx significant for Crohn's disease currently on MTX and Infliximab infusion therapy who presented with abdominal pain. 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, decision for colonoscopy or advanced small bowel imaging to be discussed at that time -OK for D/C from GI standpoint <Kody Todd MD - Last Filed: 03/18/17 16:38> Objective - Vital Signs/Intake and Output Vital Signs (last 24 hours): Temp Pulse Resp BP Pulse Ox 98.7 F 86 20 129/81 98 03/18/17 08:13 03/18/17 08:13 03/18/17 08:13 03/18/17 08:13 03/18/17 08:13 Intake and Output: 03/18/17 03/18/17 06:59 18:59 Intake Total 840 480 Balance 840 480 - Labs Labs: 03/18/17 07:00 03/18/17 07:00 PT 10.8 Seconds (9.9-11.8) 03/15/17 08:50 INR 1.00 (0.93-1.08) 03/15/17 08:50 APTT 29.1 Seconds (23.7-30.8) 03/15/17 18:28 Attending/Attestation - Attestation I have personally seen and examined this patient.: Yes I have fully participated in the care of the patient.: Yes I have reviewed all pertinent clinical information, including history, physical exam and plan: Yes Notes (Text): 03/18/17 16:37 40 yo female with PMHx significant for Crohn's disease currently on MTX and Infliximab infusion therapy who presented with abdominal pain in setting of SBO with acute flare now resolving and tolerating diet. Patient to follow with primary GI next week upon discharge.
[2017-03-18] MEDS ORDERED: Calcium-Vit D 250 mg-125 Units Tab UD PO SCH (10:00)
--- NOTE | 2017-03-18 20:00 | CP.PCM.DIS ---
<Kin Siddiqui - Last Filed: 03/18/17 19:52> Provider - Provider Date of Admission: 03/15/17 13:44 Attending physician: Jakub Garcia MD Primary care physician: Joe Martinez MD Consults: GI - Dr. Chan Surgery - Dr. Murphy Time Spent in preparation of Discharge (in minutes): 45 Diagnosis - Discharge Diagnosis (1) Bowel obstruction Status: Acute Priority: Medium (2) Exacerbation of Crohn's disease Status: Acute Priority: Low Hospital Course - Lab Results Lab Results: Micro Results 03/15/17 15:15 Blood Blood Culture - Preliminary NO GROWTH AFTER 3 DAYS 03/16/17 20:06 Urine,Clean Catch Urine Culture - Final No Growth (<1,000 CFU/ML) Most Recent Lab Values WBC 6.2 10^3/ul (4.5-11.0) 03/18/17 07:00 RBC 3.96 10^6/uL (3.5-6.1) 03/18/17 07:00 Hgb 12.6 gm/dL (12.0-16.0) 03/18/17 07:00 Hct 36.4 % (36.0-48.0) 03/18/17 07:00 MCV 91.9 fL (80.0-105.0) 03/18/17 07:00 MCH 31.8 pg (25.0-35.0) 03/18/17 07:00 MCHC 34.6 g/dl (31.0-37.0) 03/18/17 07:00 RDW 12.8 % (11.5-14.5) 03/18/17 07:00 Plt Count 251 10^3/uL (120.0-450.0) 03/18/17 07:00 MPV 10.3 fl (7.0-11.0) 03/18/17 07:00 Gran % 83.4 % (50.0-68.0) H 03/15/17 08:50 Lymph % (Auto) 10.2 % (22.0-35.0) L 03/15/17 08:50 [place] % (Auto) 6.2 % (1.0-6.0) H 03/15/17 08:50 Eos % (Auto) 0.1 % (1.5-5.0) L 03/15/17 08:50 Baso % (Auto) 0.1 % (0.0-3.0) 03/15/17 08:50 Gran # 13.30 (1.4-6.5) H 03/15/17 08:50 Lymph # 1.6 (1.2-3.4) 03/15/17 08:50 [place] # 1.0 (0.1-0.6) H 03/15/17 08:50 Eos # 0.0 (0.0-0.7) 03/15/17 08:50 Baso # 0.01 K/mm3 (0.0-2.0) 03/15/17 08:50 PT 10.8 Seconds (9.9-11.8) 03/15/17 08:50 INR 1.00 (0.93-1.08) 03/15/17 08:50 APTT 29.1 Seconds (23.7-30.8) 03/15/17 18:28 Sodium 137 mmol/L (132-148) 03/18/17 07:00 Potassium 3.6 mmol/L (3.6-5.0) 03/18/17 07:00 Chloride 106 mmol/L (98-107) 03/18/17 07:00 Carbon Dioxide 23 mmol/L (21-33) 03/18/17 07:00 Anion Gap 12 (10-20) 03/18/17 07:00 BUN 3 mg/dL (7-21) L 03/18/17 07:00 Creatinine 0.6 mg/dL (0.5-1.4) 03/18/17 07:00 Est GFR ( Amer) > 60 03/18/17 07:00 Est GFR (Non-Af Amer) > 60 03/18/17 07:00 Random Glucose 83 mg/dL (70-110) 03/18/17 07:00 Calcium 8.2 mg/dL (8.4-10.5) L 03/18/17 07:00 Total Bilirubin 0.5 mg/dL (0.2-1.3) 03/18/17 07:00 AST 31 U/L (15-39) 03/18/17 07:00 ALT 29 U/L (7-56) 03/18/17 07:00 Alkaline Phosphatase 46 U/L (38-133) 03/18/17 07:00 C-React Prot High Sens 13.29 mg/L (1.00-3.00) H 03/15/17 15:00 Total Protein 6.7 g/dL (5.8-8.3) 03/18/17 07:00 Albumin 3.6 g/dL (3.0-4.8) 03/18/17 07:00 Globulin 3.0 gm/dL 03/18/17 07:00 Albumin/Globulin Ratio 1.2 (1.1-1.8) 03/18/17 07:00 Lipase 42 U/L (23-300) 03/15/17 08:50 Procalcitonin < 0.05 NG/ML (0.19-0.49) L 03/15/17 15:00 Urine Color Yellow (YELLOW) 03/16/17 20:06 Urine Appearance Clear (CLEAR) 03/16/17 20:06 Urine pH 6.0 (4.7-8.0) 03/16/17 20:06 Ur Specific [place] >= 1.030 (1.005-1.035) 03/16/17 20:06 Urine Protein Trace mg/dL (<30 mg/dL) H 03/16/17 20:06 Urine Glucose (UA) Negative mg/dL (NEGATIVE) 03/16/17 20:06 Urine Ketones >=80 mg/dL (NEGATIVE) 03/16/17 20:06 Urine Blood Trace-lysed (NEGATIVE) H 03/16/17 20:06 Urine Nitrate Negative (NEGATIVE) 03/16/17 20:06 Urine Bilirubin Small (NEGATIVE) H 03/16/17 20:06 Urine Urobilinogen 1.0 E.U./dL (<1 E.U./dL) H 03/16/17 20:06 Ur Leukocyte Esterase Trace [place]/uL (NEGATIVE) H 03/16/17 20:06 Urine RBC 2 - 5 /hpf (0-2) 03/16/17 20:06 Urine WBC 5 - 10 /hpf (0-6) 03/16/17 20:06 Ur Epithelial Cells 10 - 12 /hpf (0-5) 03/16/17 20:06 - Hospital Course Hospital Course: 42 y/o F with PMH of Crohn's disease presented on 03/15/17 for RLQ pain. Abdomen/ pelvis CT showed stricture of the terminal ileum vs SBO. Pt was admitted for SBO secondary to Crohn's exacerbation. Pt had NG tube placed by surgery to assist with decompression of the stomach and pt was placed on bowel rest for one day. Once abdominal pain subsided, pt had NGT removed and diet slowly advanced. Pt is to follow with her GI doctor within 1 week of discharge. Pt is also to follow up with PMD. Pt was given prescription for Dexilant because she ran out of the medication at home. Pt is to continue all home medications. Discharge Exam - Head Exam Head Exam: ATRAUMATIC, NORMAL INSPECTION, NORMOCEPHALIC - Respiratory Exam Respiratory Exam: NORMAL BREATHING PATTERN, UNREMARKABLE. absent: Wheezes - Cardiovascular Exam Cardiovascular Exam: RRR, +S1, +S2 - GI/Abdominal Exam GI & Abdominal Exam: Normal Bowel Sounds, Soft, Tenderness (Improving) - Extremities Exam Extremities exam: normal inspection - Neurological Exam Neurological exam: Alert, Oriented x3 - Psychiatric Exam Psychiatric exam: Normal Affect, Normal Mood - Skin Skin Exam: Intact, Normal Color, Warm Discharge Plan - Discharge Medications Prescriptions: Dexlansoprazole [Dexilant] 60 mg PO DAILY #7 cap.bp - Follow Up Plan Condition: FAIR Disposition: HOME/ ROUTINE Instructions: Crohn Disease (DC), Soft Diet (DC), Bowel Obstruction (DC) Additional Instructions: Continue home medications as prescribed Follow up with PMD and GI physician within 1 week Return to hospital if symptoms worsen Referrals: Joe Martinez MD [Primary Care Provider] - Jefferson Chan MD [Staff Provider] - <Tom Bob - Last Filed: 03/18/17 21:09> Provider - Provider Date of Admission: 03/15/17 13:44 Attending physician: Jakub Garcia MD Primary care physician: Joe Martinez MD Hospital Course - Lab Results Lab Results: Micro Results 03/15/17 15:15 Blood Blood Culture - Preliminary NO GROWTH AFTER 3 DAYS 03/16/17 20:06 Urine,Clean Catch Urine Culture - Final No Growth (<1,000 CFU/ML) Most Recent Lab Values WBC 6.2 10^3/ul (4.5-11.0) 03/18/17 07:00 RBC 3.96 10^6/uL (3.5-6.1) 03/18/17 07:00 Hgb 12.6 gm/dL (12.0-16.0) 03/18/17 07:00 Hct 36.4 % (36.0-48.0) 03/18/17 07:00 MCV 91.9 fL (80.0-105.0) 03/18/17 07:00 MCH 31.8 pg (25.0-35.0) 03/18/17 07:00 MCHC 34.6 g/dl (31.0-37.0) 03/18/17 07:00 RDW 12.8 % (11.5-14.5) 03/18/17 07:00 Plt Count 251 10^3/uL (120.0-450.0) 03/18/17 07:00 MPV 10.3 fl (7.0-11.0) 03/18/17 07:00 Gran % 83.4 % (50.0-68.0) H 03/15/17 08:50 Lymph % (Auto) 10.2 % (22.0-35.0) L 03/15/17 08:50 [place] % (Auto) 6.2 % (1.0-6.0) H 03/15/17 08:50 Eos % (Auto) 0.1 % (1.5-5.0) L 03/15/17 08:50 Baso % (Auto) 0.1 % (0.0-3.0) 03/15/17 08:50 Gran # 13.30 (1.4-6.5) H 03/15/17 08:50 Lymph # 1.6 (1.2-3.4) 03/15/17 08:50 [place] # 1.0 (0.1-0.6) H 03/15/17 08:50 Eos # 0.0 (0.0-0.7) 03/15/17 08:50 Baso # 0.01 K/mm3 (0.0-2.0) 03/15/17 08:50 PT 10.8 Seconds (9.9-11.8) 03/15/17 08:50 INR 1.00 (0.93-1.08) 03/15/17 08:50 APTT 29.1 Seconds (23.7-30.8) 03/15/17 18:28 Sodium 137 mmol/L (132-148) 03/18/17 07:00 Potassium 3.6 mmol/L (3.6-5.0) 03/18/17 07:00 Chloride 106 mmol/L (98-107) 03/18/17 07:00 Carbon Dioxide 23 mmol/L (21-33) 03/18/17 07:00 Anion Gap 12 (10-20) 03/18/17 07:00 BUN 3 mg/dL (7-21) L 03/18/17 07:00 Creatinine 0.6 mg/dL (0.5-1.4) 03/18/17 07:00 Est GFR ( Amer) > 60 03/18/17 07:00 Est GFR (Non-Af Amer) > 60 03/18/17 07:00 Random Glucose 83 mg/dL (70-110) 03/18/17 07:00 Calcium 8.2 mg/dL (8.4-10.5) L 03/18/17 07:00 Total Bilirubin 0.5 mg/dL (0.2-1.3) 03/18/17 07:00 AST 31 U/L (15-39) 03/18/17 07:00 ALT 29 U/L (7-56) 03/18/17 07:00 Alkaline Phosphatase 46 U/L (38-133) 03/18/17 07:00 C-React Prot High Sens 13.29 mg/L (1.00-3.00) H 03/15/17 15:00 Total Protein 6.7 g/dL (5.8-8.3) 03/18/17 07:00 Albumin 3.6 g/dL (3.0-4.8) 03/18/17 07:00 Globulin 3.0 gm/dL 03/18/17 07:00 Albumin/Globulin Ratio 1.2 (1.1-1.8) 03/18/17 07:00 Lipase 42 U/L (23-300) 03/15/17 08:50 Procalcitonin < 0.05 NG/ML (0.19-0.49) L 03/15/17 15:00 Urine Color Yellow (YELLOW) 03/16/17 20:06 Urine Appearance Clear (CLEAR) 03/16/17 20:06 Urine pH 6.0 (4.7-8.0) 03/16/17 20:06 Ur Specific [place] >= 1.030 (1.005-1.035) 03/16/17 20:06 Urine Protein Trace mg/dL (<30 mg/dL) H 03/16/17 20:06 Urine Glucose (UA) Negative mg/dL (NEGATIVE) 03/16/17 20:06 Urine Ketones >=80 mg/dL (NEGATIVE) 03/16/17 20:06 Urine Blood Trace-lysed (NEGATIVE) H 03/16/17 20:06 Urine Nitrate Negative (NEGATIVE) 03/16/17 20:06 Urine Bilirubin Small (NEGATIVE) H 03/16/17 20:06 Urine Urobilinogen 1.0 E.U./dL (<1 E.U./dL) H 03/16/17 20:06 Ur Leukocyte Esterase Trace [place]/uL (NEGATIVE) H 03/16/17 20:06 Urine RBC 2 - 5 /hpf (0-2) 03/16/17 20:06 Urine WBC 5 - 10 /hpf (0-6) 03/16/17 20:06 Ur Epithelial Cells 10 - 12 /hpf (0-5) 03/16/17 20:06 Attending/Attestation - Attestation I have personally seen and examined this patient.: Yes I have fully participated in the care of the patient.: Yes I have reviewed all pertinent clinical information, including history, physical exam and plan: Yes Notes (Text): 03/18/17 21:07 Patient seen and examined at bedside. vitals, labs, orders and notes reviewed. No overnight issues reported. She is tolerating her diet well and reports improvement in her abdominal symptoms. Discharge plan reviewed with her and agree with the plan outlined by the resident. Patient verbalized clearly understanding of the discharge instructions and follow up plan and no questions/ concerns communicated.
== END 2017-03-18 13:28 | disposition home or self-care (01) | DRG 386 ==
LOC: ED 09:07 → EROBSV 09:08 → ERH 13:44 → OBSVTOIN 13:44 → EROBSV 13:44 → ERH 15:00 → 5RNO 16:24
PROVIDERS: ADMIT Hospitalist; ATTEND Internal Medicine
DX: K50.012 Crohn's disease of small intestine with intestinal obstruction (principal); K76.0 Fatty (change of) liver, not elsewhere classified; E83.51 Hypocalcemia; K21.9 Gastro-esophageal reflux disease without esophagitis; K80.20 Calculus of gallbladder without cholecystitis without obstruction; Z79.899 Other long term (current) drug therapy; Z87.891 Personal history of nicotine dependence; F41.9 Anxiety disorder, unspecified; F32.89 Other specified depressive episodes; Z88.8 Allergy status to other drugs, medicaments and biological substances; Z88.5 Allergy status to narcotic agent; Z88.2 Allergy status to sulfonamides; D72.829 Elevated white blood cell count, unspecified